=== PATIENT | female | born 1980 | race Caucasian/White ===

== ENCOUNTER 2017-08-28 15:58 | Inpatient (IN) | payer SELFPAY ==
[2017-08-28] MEDS ORDERED: Sodium Chloride 0.9% 10 ML Syringe FLUSH PRN (16:40)
[2017-08-28] MEDS ORDERED: Sodium Chloride 0.9% 2.5 ML Syringe FLUSH PRN (16:40)
--- NOTE | 2017-08-28 16:40 | EDM.PDOC ---
ED HPI GENERAL MEDICAL PROBLEM - General Chief Complaint: Genitourinary Problem Stated Complaint: ABD/BACK PAIN Time Seen by Provider: 08/28/17 16:37 Source of Information: Reports: Patient, Family History Limitations: Reports: No Limitations - History of Present Illness INITIAL COMMENTS - FREE TEXT/NARRATIVE: HISTORY AND PHYSICAL: []37-year-old female presenting with right flank pain History of Present Illness: []Patient is "rocking"while answering questions History of 12 mm stone in the past Pain is been present for 3 days and is now worsening Review of Systems: As per history of present illness and below otherwise all systems reviewed and negative. Past medical history: As per history of present illness and as reviewed below otherwise noncontributory. Surgical history: As per history of present illness and as reviewed below otherwise noncontributory. Social history: No reported history of drug or alcohol abuse. Family history: As per history of present illness and as reviewed below otherwise noncontributory. Physical exam: Alert and oriented female answering questions appropriately speaking in full sentences without any shortness of breath rating pain 12/10 HEENT: Atraumatic, normocehpalic, pupils reactive, negative for conjunctival pallor or scleral icterus, mucous membranes moist, throat clear, neck supple, nontender, trachea midline. Lungs: Clear to auscultation, breath sounds equal bilaterally, chest non tender. Heart: S1S2, regular, negative for clicks, rubs, or JVD. Abdomen: Soft, nondistended, nontender. Negative for masses or hepatossplenmegaly. Positive for right costovertebral tenderness. Pelvis: Stable nontender. Genitourinary: Deferred. Rectal: Deferred Extremities: Atraumatic, negative for cords or calf pain. Neurovascular unremarkable. Neuro: Awake, alert, oriented. Cranial nerves II through XII unremarkable. Cerebellum unremarkable. Motor and sensory unremarkable throughout. Exam nonfocal. Discussed case with hospitalist Dr. Lamas who is in agreement for inpatient admission Discussed with patient and the results of the laboratory values and CT scan and recommended admission for IV antibiotic therapy and pain control Diagnostics: [CBC CMP UA urine culture abdomen pelvis CT with contrast] Therapeutics: [LR Morphine] zofran Levaquin 750 IV Impression: []Pyelonephritis Plan: []Admit as inpatient Definitive disposition and diagnosis as appropriate pending reevaluation and review of above. Onset: Gradual Duration: Day(s):, Getting Worse Location: Reports: Back Quality: Reports: Stabbing, Throbbing Severity: Severe Improves with: Reports: None Worsens with: Reports: None Right Flank Pain Score (Numeric/FACES): 10 - Related Data Allergies Allergy/AdvReac Type Severity Reaction Status Date / Time No Known Allergies Allergy Verified 08/28/17 16:36 Home Meds: Home Meds Esomeprazole Magnesium [Nexium] 20 mg PO DAILY 08/28/17 [History] ED ROS GENERAL - Review of Systems Review Of Systems: ROS reveals no pertinent complaints other than HPI. ED EXAM, RENAL/ - Physical Exam Exam: See Below Course - Vital Signs Last Recorded V/S: Last Vital Signs Temp 39.5 C H 08/28/17 19:15 Pulse 104 H 08/28/17 19:15 Resp 18 08/28/17 19:15 BP 115/74 08/28/17 19:15 Pulse Ox 99 08/28/17 19:15 - Orders/Labs/Meds Orders: Active Orders 24 hr Category Date Time Status Abdomen Pelvis w Cont [CT] Stat Exams 08/28/17 16:41 Taken CULTURE BLOOD [BC] Stat Lab 08/28/17 18:55 Received CULTURE BLOOD [BC] Stat Lab 08/28/17 19:06 Received CULTURE URINE [RM] Stat Lab 08/28/17 18:40 Received Levofloxacin/Dextrose 5%-Water [Levaquin in D5W 750 MG/ Med 08/28/17 19:13 Active 150 ML] 750 mg Premix Bag 1 bag IV ONETIME Sodium Chloride 0.9% [Saline Flush] Med 08/28/17 16:40 Active 10 ml FLUSH ASDIRECTED PRN Sodium Chloride 0.9% [Saline Flush] Med 08/28/17 16:40 Active 2.5 ml FLUSH ASDIRECTED PRN Blood Culture x2 Reflex Set [OM.PC] Stat Oth 08/28/17 18:38 Ordered Saline Lock Insert [OM.PC] Stat Oth 08/28/17 16:40 Ordered Medication Orders Levofloxacin/Dextrose 750 mg/ (Premix) 150 mls @ 100 mls/hr IV ONETIME ONE Stop: 08/28/17 20:42 Last Admin: 08/28/17 19:20 Dose: 100 mls/hr Sodium Chloride (Saline Flush) 10 ml FLUSH ASDIRECTED PRN PRN Reason: Keep Vein Open Last Admin: 08/28/17 16:51 Dose: 10 ml Sodium Chloride (Saline Flush) 2.5 ml FLUSH ASDIRECTED PRN PRN Reason: Keep Vein Open Last Admin: 08/28/17 16:51 Dose: 2.5 ml Labs: Laboratory Tests 08/28/17 08/28/17 08/28/17 Range/Units 16:44 16:44 18:40 WBC 25.59 H (4.0-11.0) K/uL RBC 4.52 (4.30-5.90) M/uL Hgb 14.2 (12.0-16.0) g/dL Hct 40.3 (36.0-46.0) % MCV 89.2 (80.0-98.0) fL MCH 31.4 (27.0-32.0) pg MCHC 35.2 (31.0-37.0) g/dL RDW Std Deviation 44.1 (28.0-62.0) fl RDW Coeff of Giovanna 13 (11.0-15.0) % Plt Count 162 (150-400) K/uL MPV 10.40 (7.40-12.00) fL Add Manual Diff YES Neutrophils % (Manual) 87 H (48.0-80.0) % Band Neutrophils % 8 % Lymphocytes % (Manual) 2 L (16.0-40.0) % Monocytes % (Manual) 3 (0.0-15.0) % Nucleated RBC % 0.0 /100WBC Absolute Seg Neuts 22.3 H (1.4-5.7) Band Neutrophils # 2.0 Lymphocytes # (Manual) 0.5 L (0.6-2.4) Monocytes # (Manual) 0.8 (0.0-0.8) Nucleated RBCs # 0 K/uL Sodium 137 (136-145) mmol/L Potassium 3.2 L (3.5-5.1) mmol/L Chloride 102 (98-107) mmol/L Carbon Dioxide 21.2 (21.0-32.0) mmol/L BUN 13 (7.0-18.0) mg/dL Creatinine 1.1 H (0.6-1.0) mg/dL Est Cr Clr Drug Dosing 54.84 mL/min Estimated GFR (MDRD) 55.6 ml/min Glucose 111 H (74-106) mg/dL Calcium 8.8 (8.5-10.1) mg/dL Total Bilirubin 0.6 (0.2-1.0) mg/dL AST 15 (15-37) IU/L ALT 14 (14-63) IU/L Alkaline Phosphatase 55 (46-116) U/L Total Protein 7.1 (6.4-8.2) g/dL Albumin 3.6 (3.4-5.0) g/dL Globulin 3.5 (2.0-3.5) g/dL Albumin/Globulin Ratio 1.0 L (1.3-2.8) Urine Color YELLOW Urine Appearance SLT CLOUDY Urine pH 5.5 (5.0-8.0) Ur Specific [place] <= 1.005 (1.001-1.035) Urine Protein 100 (NEGATIVE) mg/dL Urine Glucose (UA) NEGATIVE (NEGATIVE) mg/dL Urine Ketones TRACE H (NEGATIVE) mg/dL Urine Occult Blood LARGE H (NEGATIVE) Urine Nitrite POSITIVE H (NEGATIVE) Urine Bilirubin NEGATIVE (NEGATIVE) Urine Urobilinogen 1.0 (<2.0) EU/dL Ur Leukocyte Esterase SMALL (NEGATIVE) Urine RBC 6-9 (0-2/HPF) Urine WBC 15-17 (0-5/HPF) Ur Epithelial Cells RARE (NONE-FEW) Urine Bacteria FEW (NEGATIVE) Urine HCG, Qual (NEGATIVE) 08/28/17 Range/Units 18:40 WBC (4.0-11.0) K/uL RBC (4.30-5.90) M/uL Hgb (12.0-16.0) g/dL Hct (36.0-46.0) % MCV (80.0-98.0) fL MCH (27.0-32.0) pg MCHC (31.0-37.0) g/dL RDW Std Deviation (28.0-62.0) fl RDW Coeff of Giovanna (11.0-15.0) % Plt Count (150-400) K/uL MPV (7.40-12.00) fL Add Manual Diff Neutrophils % (Manual) (48.0-80.0) % Band Neutrophils % % Lymphocytes % (Manual) (16.0-40.0) % Monocytes % (Manual) (0.0-15.0) % Nucleated RBC % /100WBC Absolute Seg Neuts (1.4-5.7) Band Neutrophils # Lymphocytes # (Manual) (0.6-2.4) Monocytes # (Manual) (0.0-0.8) Nucleated RBCs # K/uL Sodium (136-145) mmol/L Potassium (3.5-5.1) mmol/L Chloride (98-107) mmol/L Carbon Dioxide (21.0-32.0) mmol/L BUN (7.0-18.0) mg/dL Creatinine (0.6-1.0) mg/dL Est Cr Clr Drug Dosing mL/min Estimated GFR (MDRD) ml/min Glucose (74-106) mg/dL Calcium (8.5-10.1) mg/dL Total Bilirubin (0.2-1.0) mg/dL AST (15-37) IU/L ALT (14-63) IU/L Alkaline Phosphatase (46-116) U/L Total Protein (6.4-8.2) g/dL Albumin (3.4-5.0) g/dL Globulin (2.0-3.5) g/dL Albumin/Globulin Ratio (1.3-2.8) Urine Color Urine Appearance Urine pH (5.0-8.0) Ur Specific [place] (1.001-1.035) Urine Protein (NEGATIVE) mg/dL Urine Glucose (UA) (NEGATIVE) mg/dL Urine Ketones (NEGATIVE) mg/dL Urine Occult Blood (NEGATIVE) Urine Nitrite (NEGATIVE) Urine Bilirubin (NEGATIVE) Urine Urobilinogen (<2.0) EU/dL Ur Leukocyte Esterase (NEGATIVE) Urine RBC (0-2/HPF) Urine WBC (0-5/HPF) Ur Epithelial Cells (NONE-FEW) Urine Bacteria (NEGATIVE) Urine HCG, Qual NEGATIVE (NEGATIVE) Meds: Medications Generic Name Dose Route Start Last Admin Trade Name Freq PRN Reason Stop Dose Admin Levofloxacin/Dextrose 750 mg/ 150 mls @ 100 mls/hr 08/28/17 19:13 08/28/17 19 :20 Premix IV 08/28/17 20:42 100 mls/hr ONETIME ONE Administration Sodium Chloride 10 ml 08/28/17 16:40 08/28/17 16:51 Saline Flush FLUSH 10 ml ASDIRECTED PRN Administration Keep Vein Open Sodium Chloride 2.5 ml 08/28/17 16:40 08/28/17 16:51 Saline Flush FLUSH 2.5 ml ASDIRECTED PRN Administration Keep Vein Open Discontinued Medications Generic Name Dose Route Start Last Admin Trade Name Usmanq PRN Reason Stop Dose Admin Acetaminophen 650 mg 08/28/17 19:20 08/28/17 19:27 Tylenol PO 08/28/17 19:21 650 mg NOW ONE Administration Sodium Chloride 1,000 mls @ 999 mls/hr 08/28/17 17:52 08/28/17 17:55 Normal Saline IV 08/28/17 18:52 999 mls/hr .Bolus ONE Administration Lactated Ringer's 1,000 mls @ 999 mls/hr 08/28/17 18:34 08/28/17 19:12 Ringers, Lactated IV 08/28/17 19:34 999 mls/hr .BOLUS ONE Administration Iopamidol 100 ml 08/28/17 17:49 08/28/17 17:50 Isovue Multipack-370 (76%) IVPUSH 08/28/17 17:50 100 ml ONETIME STA Administration Ketorolac Tromethamine 30 mg 08/28/17 19:17 08/28/17 19:21 Toradol IVPUSH 08/28/17 19:18 30 mg ONETIME ONE Administration Morphine Sulfate 2 mg 08/28/17 16:41 08/28/17 16:50 Morphine IVPUSH 08/28/17 16:42 2 mg ONETIME ONE Administration Morphine Sulfate 2 mg 08/28/17 18:40 08/28/17 18:51 Morphine IVPUSH 08/28/17 18:41 2 mg ONETIME ONE Administration Ondansetron HCl 4 mg 08/28/17 16:41 08/28/17 16:50 Zofran IVPUSH 08/28/17 16:42 4 mg ONETIME ONE Administration Departure - Departure Time of Disposition: 19:54 Disposition: Home, Self-Care 01 Condition: Fair Clinical Impression: Pyelonephritis - Discharge Information Referrals: PCP,None [Primary Care Provider] - Forms: ED Department Discharge - My Orders Last 24 Hours: My Active Orders 08/28/17 16:40 Sodium Chloride 0.9% [Saline Flush] 10 ml FLUSH ASDIRECTED PRN Sodium Chloride 0.9% [Saline Flush] 2.5 ml FLUSH ASDIRECTED PRN Saline Lock Insert [OM.PC] Stat 08/28/17 16:41 Abdomen Pelvis w Cont [CT] Stat 08/28/17 18:38 Blood Culture x2 Reflex Set [OM.PC] Stat 08/28/17 18:40 CULTURE URINE [RM] Stat 08/28/17 18:55 CULTURE BLOOD [BC] Stat 08/28/17 19:06 CULTURE BLOOD [BC] Stat 08/28/17 19:13 Levofloxacin/Dextrose 5%-Water [Levaquin in D5W 750 MG/150 ML] 750 mg Premix Bag 1 bag IV ONETIME - Assessment/Plan Last 24 Hours: My Active Orders 08/28/17 16:40 Sodium Chloride 0.9% [Saline Flush] 10 ml FLUSH ASDIRECTED PRN Sodium Chloride 0.9% [Saline Flush] 2.5 ml FLUSH ASDIRECTED PRN Saline Lock Insert [OM.PC] Stat 08/28/17 16:41 Abdomen Pelvis w Cont [CT] Stat 08/28/17 18:38 Blood Culture x2 Reflex Set [OM.PC] Stat 08/28/17 18:40 CULTURE URINE [RM] Stat 08/28/17 18:55 CULTURE BLOOD [BC] Stat 08/28/17 19:06 CULTURE BLOOD [BC] Stat 08/28/17 19:13 Levofloxacin/Dextrose 5%-Water [Levaquin in D5W 750 MG/150 ML] 750 mg Premix Bag 1 bag IV ONETIME
[2017-08-28] MEDS ORDERED: Morphine 2 MG/ML Syringe IVPUSH ONE ×2 (16:41→18:40)
[2017-08-28] MEDS ORDERED: Ondansetron 4 MG/2 ML SDV IVPUSH ONE (16:41)
[2017-08-28] MEDS ORDERED: Iopamidol 755 MG/ML 500 ML Multipack Bottle IVPUSH STA (17:49)
[2017-08-28] MEDS ORDERED: Sodium Chloride 0.9% 1,000 ML IV ONE (17:52)
[2017-08-28] MEDS ORDERED: Lactated Ringers 1,000 ML IV ONE ×2 (18:34→20:39)
[2017-08-28] MEDS ORDERED: Levofloxacin/Dextrose 5%-Water 750 MG in Premix Bag 1 BAG IV ONE (19:13)
[2017-08-28] MEDS ORDERED: Ketorolac 30 MG/ML SDV IVPUSH ONE (19:17)
[2017-08-28] MEDS ORDERED: Acetaminophen 325 MG Tab PO ONE (19:20)
[2017-08-28] MEDS ORDERED: Temazepam 15 MG Cap PO PRN (20:42)
[2017-08-28] MEDS ORDERED: Ondansetron 4 MG Tab.DIS PO PRN (20:42)
[2017-08-28] MEDS ORDERED: Ondansetron 4 MG/2 ML SDV IVPUSH PRN (20:42)
[2017-08-28] MEDS ORDERED: Potassium Chloride 20 MEQ Tab.ER PO ONE (20:42)
[2017-08-28] MEDS ORDERED: Acetaminophen 325 MG Tab PO PRN (20:42)
--- NOTE | 2017-08-28 20:50 | PCM.HP ---
H&P History of Present Illness - General Date of Service: 08/28/17 Admit Problem/Dx: Admission Diagnosis/Problem Admission Diagnosis/Problem Pyelonephritis Source of Information: Patient History Limitations: Reports: No Limitations - History of Present Illness Initial Comments - Free Text/Narative: 29-year-old female presenting to emergency department with chief complaint of right back and side pain 3 days with past medical history of nephrolithiasis and GERD. Patient states that this last Sunday she began having some right back and side pain. She had associated diaphoresis, fever, chills, and nausea. States that she has a history of nephrolithiasis and 8 years ago had a 12 mm stone that required lithotripsy with stent. Has not had a renal calculi since. She does report a history of pyelonephritis as a child with infections mainly affecting the right kidney. Patient is a current smoker half a pack a day smoker for 20 years. Otherwise patient is healthy and only takes medications for GERD. She is currently living in [place] and has no PCP. Patient denies any chest pain, palpitations, shortness breath, syncopal episodes, or neurologic deficits. Emergency department:: Leukocytosis 25.59k, hypokalemia 3.2, increased creatinine at 1.1, urine positive for UTI, CT abdomen pelvis showing right striated nephrogram with right perinephric inflammatory change and enhancement of the urothelium reflecting pyelonephritis and pyelitis. There is subtle hypodensity in the left superior kidney could represent an area of mild lori nephritis on the left as well. There are no obstructing stones. Patient hypotensive 82/35, tachycardic 103, with a temp of 103.2. Patient admitted for sepsis secondary to pyelonephritis. Right Flank Pain Score (Numeric/FACES): 2 - Related Data Allergies/Adverse Reactions: Allergies Allergy/AdvReac Type Severity Reaction Status Date / Time No Known Allergies Allergy Verified 08/28/17 16:36 Home Medications: Home Meds Esomeprazole Magnesium [Nexium] 20 mg PO DAILY 08/28/17 [History] Past Medical History - Past Health History Medical/Surgical History: Denies Medical/Surgical History Social & Family History - Tobacco Use Smoking Status *Q: Current Every Day Smoker Years of Tobacco use: 20 Packs/Tins Daily: 0.5 - Caffeine Use Caffeine Use: Reports: Other - Recreational Drug Use Recreational Drug Use: No H&P Review of Systems - Review of Systems: Review Of Systems: See Below General: Reports: Fever, Chills, Fatigue HEENT: Reports: Headaches. Denies: Dysphasia, Sore Throat Pulmonary: Denies: Shortness of Breath, Cough, Sputum Cardiovascular: Denies: Chest Pain, Palpitations, Edema Gastrointestinal: Reports: Decreased Appetite, Nausea, Vomiting. Denies: Abdominal Pain, Black Stool, Bloody Stool, Diarrhea Genitourinary: Reports: Dysuria, Flank Pain. Denies: Hematuria Musculoskeletal: Denies: Neck Pain, Leg Pain Skin: Denies: Cyanosis Psychiatric: Denies: Confusion Neurological: Reports: Headache. Denies: Confusion, Dizziness Hematologic/Lymphatic: Denies: Anemia Immunologic: Denies: Anaphylaxis Exam - Exam Exam: See Below - Vital Signs Vital Signs: Last Vital Signs Temp 100.8 F H 08/28/17 20:27 Pulse 103 H 08/28/17 20:27 Resp 14 08/28/17 20:27 BP 97/49 L 08/28/17 20:27 Pulse Ox 95 08/28/17 20:27 Weight: 76.204 kg - Exam Quality Assessment: DVT Prophylaxis General: Alert, Oriented, Cooperative HEENT: Conjunctiva Clear, EACs Clear, EOMI, Hearing Intact, Mucosa Moist & [place] , Nares Patent, Normal Nasal Septum, Posterior Pharynx Clear, PERRLA Neck: Supple, Trachea Midline, 2 Lungs: Clear to Auscultation, Normal Respiratory Effort Cardiovascular: Regular Rhythm, Tachycardia GI/Abdominal Exam: Normal Bowel Sounds, Soft, Non-Tender, No Organomegaly, No Distention (Female) Exam: Deferred Rectal (Female) Exam: Deferred Back Exam: CVA Tenderness (L), CVA Tenderness (R) Extremities: Normal Inspection, Non-Tender, No Pedal Edema, Normal Capillary Refill Peripheral Pulses: 2+: Radial (L), Radial (R), Posterior Tibial (L), Posterior Tibial (R), Dorsalis Pedis (L), Dorsalis Pedis (R) Skin: Warm, Dry, Intact Neurological: Cranial Nerves Intact Neuro Extensive - Mental Status: Alert, Oriented x3, Normal Mood/Affect, Normal Cognition Neuro Extensive - Motor, Sensory, Reflexes: CN II-XII Intact Psychiatric: Alert, Normal Affect, Normal Mood - Patient Data Result Diagrams: 08/28/17 16:44 08/28/17 16:44 *Q Meaningful Use (ADM) - VTE *Q VTE Criteria *Q: - Stroke *Q Stroke Criteria *Q: - AMI *Q AMI Criteria *Q: - Problem List (1) Sepsis due to Gram negative bacteria SNOMED Code(s): 832414994 ICD Code: A41.50 - GRAM-NEGATIVE SEPSIS, UNSPECIFIED Status: Suspected Priority: High Current Visit: Yes (2) Chronic GERD SNOMED Code(s): 369417908 ICD Code: K21.9 - GASTRO-ESOPHAGEAL REFLUX DISEASE WITHOUT ESOPHAGITIS Status: Chronic Priority: Low Current Visit: Yes (3) Pyelonephritis SNOMED Code(s): 60578221 ICD Code: N12 - TUBULO-INTERSTITIAL NEPHRITIS, NOT SPCF ACUTE OR CHRONIC Status: Acute Priority: High Current Visit: Yes Problem List Initiated/Reviewed/Updated: Yes Orders Last 24hrs: Active Orders 24 hr Category Date Time Status Patient Status [ADT] Routine ADT 08/28/17 20:42 Ordered Antiembolic Devices [RC] PER UNIT ROUTINE Care 08/28/17 20:44 Ordered Oxygen Therapy [RC] PRN Care 08/28/17 20:42 Ordered Up With Assistance [RC] ASDIRECTED Care 08/28/17 20:42 Ordered VTE/DVT Education [RC] PER UNIT ROUTINE Care 08/28/17 20:42 Ordered Vital Signs [RC] Q4H Care 08/28/17 20:42 Ordered Regular Diet [DIET] Diet 08/28/17 Dinner Ordered Retroperitoneal Comp [US] Routine Exams 08/28/17 20:42 Ordered CBC WITH AUTO DIFF [HEME] AM Lab 08/29/17 05:11 Ordered CBC WITH AUTO DIFF [HEME] AM Lab 08/30/17 05:11 Ordered CBC WITH AUTO DIFF [HEME] AM Lab 08/31/17 05:11 Ordered CBC WITH AUTO DIFF [HEME] AM Lab 09/01/17 05:11 Ordered COMPREHENSIVE METABOLIC PN,CMP [CHEM] AM Lab 08/29/17 05:11 Ordered COMPREHENSIVE METABOLIC PN,CMP [CHEM] AM Lab 08/30/17 05:11 Ordered COMPREHENSIVE METABOLIC PN,CMP [CHEM] AM Lab 08/31/17 05:11 Ordered COMPREHENSIVE METABOLIC PN,CMP [CHEM] AM Lab 09/01/17 05:11 Ordered MAGNESIUM [CHEM] AM Lab 08/29/17 05:11 Ordered Acetaminophen [Tylenol] Med 08/28/17 20:42 Ordered 650 mg PO Q4H PRN Acetaminophen/HYDROcodone [[place] 325-5 MG] Med 08/28/17 20:42 Ordered 1 tab PO Q4H PRN Enoxaparin [Lovenox] Med 08/28/17 20:45 Ordered 40 mg SUBCUT DAILY Esomeprazole Magnesium [Nexium] Med 08/29/17 09:00 Ordered 20 mg PO DAILY Lactated Ringers [Ringers, Lactated] 1,000 ml Med 08/28/17 20:45 Ordered IV ASDIRECTED Lactated Ringers [Ringers, Lactated] 1,000 ml Med 08/28/17 20:39 Active IV ONETIME Levofloxacin/Dextrose 5%-Water [Levaquin in D5W 750 MG/ Med 08/29/17 20:00 Ordered 150 ML] 750 mg Premix Bag 1 bag IV Q24H Morphine Med 08/28/17 20:42 Ordered 2 mg IVPUSH Q2H PRN Nicotine [Habitrol] Med 08/28/17 20:45 Ordered 7 mg TRDERM DAILY Ondansetron [Zofran ODT] Med 08/28/17 20:42 Ordered 4 mg PO Q4H PRN Ondansetron [Zofran] Med 08/28/17 20:42 Ordered 4 mg IVPUSH Q4H PRN Potassium Chloride [Klor-Con M20] Med 08/28/17 20:42 Once 40 meq PO ONETIME ONE Temazepam [Restoril] Med 08/28/17 20:42 Ordered 15 mg PO BEDTIME PRN Sequential Compression Device [OM.PC] Per Unit Routine Oth 08/28/17 20:43 Ordered Resuscitation Status Routine Resus Stat 08/28/17 20:42 Ordered Medication Orders Acetaminophen (Tylenol) 650 mg PO Q4H PRN PRN Reason: Pain (Mild 1-3)/fever Hydrocodone Bitart/Acetaminophen ([place] 325-5 Mg) 1 tab PO Q4H PRN PRN Reason: Pain (moderate 4-6) Enoxaparin Sodium (Lovenox) 40 mg SUBCUT DAILY LULU Lactated Ringer's (Ringers, Lactated) 1,000 mls @ 999 mls/hr IV ONETIME ONE Stop: 08/28/17 21:39 Last Admin: 08/28/17 20:47 Dose: 999 mls/hr Lactated Ringer's (Ringers, Lactated) 1,000 mls @ 150 mls/hr IV ASDIRECTED REPLACED BY [facility] Levofloxacin/Dextrose 750 mg/ (Premix) 150 mls @ 100 mls/hr IV Q24H [facility] Morphine Sulfate (Morphine) 2 mg IVPUSH Q2H PRN PRN Reason: Pain (severe 7-10) Stop: 08/29/17 20:45 Nicotine (Habitrol) 7 mg TRDERM DAILY REPLACED BY [facility] Non-Formulary Medication (Esomeprazole Magnesium [Nexium]) 20 mg PO DAILY REPLACED BY [facility] Ondansetron HCl (Zofran Odt) 4 mg PO Q4H PRN PRN Reason: nausea, able to take PO Ondansetron HCl (Zofran) 4 mg IVPUSH Q4H PRN PRN Reason: Nausea Potassium Chloride (Klor-Con M20) 40 meq PO ONETIME ONE Stop: 08/28/17 20:43 Sodium Chloride (Saline Flush) 10 ml FLUSH ASDIRECTED PRN PRN Reason: Keep Vein Open Last Admin: 08/28/17 16:51 Dose: 10 ml Sodium Chloride (Saline Flush) 2.5 ml FLUSH ASDIRECTED PRN PRN Reason: Keep Vein Open Last Admin: 08/28/17 16:51 Dose: 2.5 ml Temazepam (Restoril) 15 mg PO BEDTIME PRN PRN Reason: Sleep Assessment/Plan Comment:: 29-year-old female admitted 08/28/17 for sepsis secondary to pyelonephritis past medical history of GERD. Pyelonephritis/sepsis: Admit to ICU, IV fluid resuscitate with boluses as needed. Levaquin 750 mg every 24, blood cultures and urine culture obtained and pending. Lactate normal. Will get renal ultrasound as well. Acute kidney injury: Most likely secondary to vol. depletion, IV fluid resuscitate and monitor. Hypokalemia: Replace with potassium supplement. Smoking addiction: Transdermal nicotine VTE: SCD, Lovenox Dispo:2-4 days pending.
[2017-08-28] MEDS: Enoxaparin 40 MG/0.4 ML Syringe SUBCUT SCH (21:33)
[2017-08-28] MEDS: Nicotine 7 MG/24 Hr Patch TRDERM SCH (21:33)
[2017-08-28] MEDS: Lactated Ringers 1,000 ML IV SCH ×2 (21:44→22:52)
[2017-08-28] MEDS: Acetaminophen/HYDROcodone 325-5 MG Tab PO PRN (22:31)
[2017-08-28] MEDS ORDERED: Albumin 5% 250 ML IV SCH (23:00)
[2017-08-29] MEDS: Ibuprofen 400 MG Tab PO PRN ×3 (00:07→23:41)
[2017-08-29] MEDS: Morphine 2 MG/ML Syringe IVPUSH PRN ×3 (00:36→19:17)
[2017-08-29] MEDS ORDERED: Sodium Chloride 0.9% 1,000 ML IV ONE (05:29)
[2017-08-29] MEDS: Lactated Ringers 1,000 ML IV SCH ×3 (05:32→19:44)
[2017-08-29] MEDS ORDERED: Magnesium Sulfate/Water 2 GM in Premix Bag 1 BAG IV ONE (06:59)
[2017-08-29] MEDS: Omeprazole 20 MG Cap.CR PO SCH (08:00)
[2017-08-29] MEDS: Enoxaparin 40 MG/0.4 ML Syringe SUBCUT SCH (08:00)
[2017-08-29] MEDS: Nicotine 7 MG/24 Hr Patch TRDERM SCH (08:10)
[2017-08-29] MEDS ORDERED: Magnesium Sulfate/Water 4 GM in Premix Bag 1 BAG IV ONE (08:57)
[2017-08-29] MEDS ORDERED: Metoclopramide 10 MG/2 ML SDV IVPUSH ONE (10:09)
[2017-08-29] MEDS ORDERED: diphenhydrAMINE 50 MG/ML SDV IVPUSH ONE ×2 (10:09→19:49)
[2017-08-29] MEDS ORDERED: Ketorolac 15 MG/ML SDV IVPUSH ONE (10:09)
--- NOTE | 2017-08-29 10:33 | CT ---
EXAM DATE: 08/28/17 PATIENT'S AGE: 37 Patient: RENE DALTON Facility: [place], [place] Site . Site : [id number] Study: CT Abdomen/Pelvis With [id number] 6:08:43 PM Ordering Physician: Doctor Johnson Final Report: General abdominal pain. TECHNIQUE: Contrast-enhanced CT abdomen pelvis. Coronal sagittal reformat images obtained. No comparison studies are available. FINDINGS: Basilar mild atelectasis. Heart size normal. No pericardial effusion. No pleural effusion. Right lower lobe granuloma. Probable deflated bilateral breast implants. Small cysts in the liver. Gallbladder spleen pancreas adrenal glands are unremarkable. Striated nephrogram involving the right kidney with additional more confluent low-density areas in the in the superior right kidney. Punctate nonobstructing right lower pole renal calculus. There is perinephric stranding on the right. There is enhancement of the urothelium on the right. No obstructing stones. Possible subtle hypodensity left superior kidney seen on series 201 image 45. No hydronephrosis. Normal vascular enhancement of the mesenteric vessels. Normal appendix. Urinary bladder appears unremarkable. The bowel is unremarkable. No suspicious bony lesions. Findings : IMPRESSION: 1. Right striated nephrogram with right perinephric inflammatory change and enhancement of the urothelium reflecting pyelonephritis and pyelitis. Subtle hypodensity in the left superior kidney could represent an area of mild pyelonephritis on the left as well. No obstructing stones. Please note that all CT scans at this facility use dose modulation, iterative reconstruction, and/or weight-based dosing when appropriate to reduce radiation dose to as low as reasonably achievable. Dictated by Liliane Thurman MD @ Aug 28 2017 6:47PM (Electronic Signature) Report Signed by Proxy. [facility] CENTERReyna
--- NOTE | 2017-08-29 11:08 | US ---
EXAMINATION: Renal ultrasound HISTORY: Pyelonephritis COMPARISON: CT dated 08/28/2017 TECHNIQUE: Grayscale and color Doppler imaging obtained of the kidneys and bladder. FINDINGS: The right kidney measures at least 13.1 cm and the left kidney measures at least 12.5 cm po le-to-pole. There is a minimal prominence of the right renal collecting system. Color Doppler flow ap pears normal bilaterally. Urinary bladder appears normal. No renal masses or perinephric fluid collec tions. IMPRESSION: Grossly unremarkable renal ultrasound.
[2017-08-29] MEDS: Acetaminophen/HYDROcodone 325-5 MG Tab PO PRN ×2 (12:24→23:41)
--- NOTE | 2017-08-29 14:46 | PCM.PN ---
- General Info Date of Service: 08/29/17 Subjective Update: Patient still having some chills, her hypotension is improving, she is however having a significant headache which appears to be migraine in nature. Likely secondary to her dehydration and acute pyelonephritis symptoms. - Review of Systems General: Reports: Weakness, Chills - Patient Data Vitals - Most Recent: Last Vital Signs Temp 37.1 C 08/29/17 14:00 Pulse 96 08/28/17 20:34 Resp 24 H 08/29/17 14:00 BP 93/51 L 08/29/17 14:00 Pulse Ox 96 08/29/17 14:00 Weight - Most Recent: 81.7 kg I&O - Last 24 Hours: Intake & Output 08/28/17 08/29/17 08/29/17 22:59 06:59 14:59 Intake Total 2150 700 1564 Output Total 850 850 Balance 2150 -150 714 Lab Results Last 24 Hours: Laboratory Results - last 24 hr 08/28/17 08/29/17 08/29/17 Range/Units 21:34 05:33 05:33 WBC 18.19 H (4.0-11.0) K/uL RBC 3.56 L (4.30-5.90) M/uL Hgb 11.1 L (12.0-16.0) g/dL Hct 32.4 L (36.0-46.0) % MCV 91.0 (80.0-98.0) fL MCH 31.2 (27.0-32.0) pg MCHC 34.3 (31.0-37.0) g/dL RDW Std Deviation 45.3 (28.0-62.0) fl RDW Coeff of Giovanna 14 (11.0-15.0) % Plt Count 122 L (150-400) K/uL MPV 10.60 (7.40-12.00) fL Add Manual Diff YES Neutrophils % (Manual) 75 (48.0-80.0) % Band Neutrophils % 16 % Lymphocytes % (Manual) 4 L (16.0-40.0) % Monocytes % (Manual) 5 (0.0-15.0) % Nucleated RBC % 0.0 /100WBC Absolute Seg Neuts 13.6 H (1.4-5.7) Band Neutrophils # 2.9 Lymphocytes # (Manual) 0.7 (0.6-2.4) Monocytes # (Manual) 0.9 H (0.0-0.8) Nucleated RBCs # 0 K/uL Lactate 1.9 (0.20-2.00) mmol/L Sodium 138 (136-145) mmol/L Potassium 4.3 (3.5-5.1) mmol/L Chloride 105 (98-107) mmol/L Carbon Dioxide 24.5 (21.0-32.0) mmol/L BUN 13 (7.0-18.0) mg/dL Creatinine 1.1 H (0.6-1.0) mg/dL Est Cr Clr Drug Dosing 54.84 mL/min Estimated GFR (MDRD) 55.6 ml/min Glucose 110 H (74-106) mg/dL Calcium 8.0 L (8.5-10.1) mg/dL Phosphorus (2.6-4.7) mg/dL Magnesium 1.0 L (1.5-2.0) mg/dL Total Bilirubin 0.5 (0.2-1.0) mg/dL AST 17 (15-37) IU/L ALT 16 (14-63) IU/L Alkaline Phosphatase 34 L (46-116) U/L Total Protein 5.4 L (6.4-8.2) g/dL Albumin 2.6 L (3.4-5.0) g/dL Globulin 2.8 (2.0-3.5) g/dL Albumin/Globulin Ratio 0.9 L (1.3-2.8) 08/29/17 Range/Units 05:33 WBC (4.0-11.0) K/uL RBC (4.30-5.90) M/uL Hgb (12.0-16.0) g/dL Hct (36.0-46.0) % MCV (80.0-98.0) fL MCH (27.0-32.0) pg MCHC (31.0-37.0) g/dL RDW Std Deviation (28.0-62.0) fl RDW Coeff of Giovanna (11.0-15.0) % Plt Count (150-400) K/uL MPV (7.40-12.00) fL Add Manual Diff Neutrophils % (Manual) (48.0-80.0) % Band Neutrophils % % Lymphocytes % (Manual) (16.0-40.0) % Monocytes % (Manual) (0.0-15.0) % Nucleated RBC % /100WBC Absolute Seg Neuts (1.4-5.7) Band Neutrophils # Lymphocytes # (Manual) (0.6-2.4) Monocytes # (Manual) (0.0-0.8) Nucleated RBCs # K/uL Lactate (0.20-2.00) mmol/L Sodium (136-145) mmol/L Potassium (3.5-5.1) mmol/L Chloride (98-107) mmol/L Carbon Dioxide (21.0-32.0) mmol/L BUN (7.0-18.0) mg/dL Creatinine (0.6-1.0) mg/dL Est Cr Clr Drug Dosing mL/min Estimated GFR (MDRD) ml/min Glucose (74-106) mg/dL Calcium (8.5-10.1) mg/dL Phosphorus 2.8 (2.6-4.7) mg/dL Magnesium (1.5-2.0) mg/dL Total Bilirubin (0.2-1.0) mg/dL AST (15-37) IU/L ALT (14-63) IU/L Alkaline Phosphatase (46-116) U/L Total Protein (6.4-8.2) g/dL Albumin (3.4-5.0) g/dL Globulin (2.0-3.5) g/dL Albumin/Globulin Ratio (1.3-2.8) Med Orders - Current: Current Medications Acetaminophen (Tylenol) 650 mg PO Q4H PRN PRN Reason: Pain (Mild 1-3)/fever Hydrocodone Bitart/Acetaminophen ([place] 325-5 Mg) 1 tab PO Q4H PRN PRN Reason: Pain (moderate 4-6) Last Admin: 08/29/17 12:24 Dose: 1 tab Enoxaparin Sodium (Lovenox) 40 mg SUBCUT DAILY [facility] Last Admin: 08/29/17 08:00 Dose: 40 mg Lactated Ringer's (Ringers, Lactated) 1,000 mls @ 150 mls/hr IV ASDIRECTED [facility] Last Admin: 08/29/17 13:16 Dose: 150 mls/hr Levofloxacin/Dextrose 750 mg/ (Premix) 150 mls @ 100 mls/hr IV Q24H [facility] Ibuprofen (Motrin) 400 mg PO Q6H PRN PRN Reason: Other Last Admin: 08/29/17 12:24 Dose: 400 mg Morphine Sulfate (Morphine) 2 mg IVPUSH Q2H PRN PRN Reason: Pain (severe 7-10) Stop: 08/29/17 20:45 Last Admin: 08/29/17 08:00 Dose: 2 mg Nicotine (Habitrol) 7 mg TRDERM DAILY [facility] Last Admin: 08/29/17 08:10 Dose: 7 mg Omeprazole (Omeprazole) 20 mg PO DAILY [facility] Last Admin: 08/29/17 08:00 Dose: 20 mg Ondansetron HCl (Zofran Odt) 4 mg PO Q4H PRN PRN Reason: nausea, able to take PO Ondansetron HCl (Zofran) 4 mg IVPUSH Q4H PRN PRN Reason: Nausea Last Admin: 08/29/17 00:03 Dose: 4 mg Sodium Chloride (Saline Flush) 10 ml FLUSH ASDIRECTED PRN PRN Reason: Keep Vein Open Last Admin: 08/28/17 16:51 Dose: 10 ml Sodium Chloride (Saline Flush) 2.5 ml FLUSH ASDIRECTED PRN PRN Reason: Keep Vein Open Last Admin: 08/28/17 16:51 Dose: 2.5 ml Temazepam (Restoril) 15 mg PO BEDTIME PRN PRN Reason: Sleep Discontinued Medications Acetaminophen (Tylenol) 650 mg PO NOW ONE Stop: 08/28/17 19:21 Last Admin: 08/28/17 19:27 Dose: 650 mg Diphenhydramine HCl (Benadryl) 25 mg IVPUSH ONETIME ONE Stop: 08/29/17 10:10 Last Admin: 08/29/17 10:43 Dose: 25 mg Sodium Chloride (Normal Saline) 1,000 mls @ 999 mls/hr IV .Bolus ONE Stop: 08/28/17 18:52 Last Admin: 08/28/17 17:55 Dose: 999 mls/hr Lactated Ringer's (Ringers, Lactated) 1,000 mls @ 999 mls/hr IV .BOLUS ONE Stop: 08/28/17 19:34 Last Admin: 08/28/17 19:12 Dose: 999 mls/hr Levofloxacin/Dextrose 750 mg/ (Premix) 150 mls @ 100 mls/hr IV ONETIME ONE Stop: 08/28/17 20:42 Last Admin: 08/28/17 19:20 Dose: 100 mls/hr Lactated Ringer's (Ringers, Lactated) 1,000 mls @ 999 mls/hr IV ONETIME ONE Stop: 08/28/17 21:39 Last Admin: 08/28/17 20:47 Dose: 999 mls/hr Albumin Human (Buminate 5%) 250 mls @ 125 mls/hr IV Q2H [facility] Stop: 08/29/17 00:59 Last Admin: 08/29/17 00:02 Dose: 125 mls/hr Sodium Chloride (Normal Saline) 1,000 mls @ 1,000 mls/hr IV .Bolus ONE Stop: 08/29/17 06:28 Last Admin: 08/29/17 05:49 Dose: 1,000 mls/hr Magnesium Sulfate 2 gm/ Premix 50 mls @ 50 mls/hr IV ONETIME ONE Stop: 08/29/17 07:58 Last Admin: 08/29/17 07:52 Dose: 50 mls/hr Magnesium Sulfate 4 gm/ Premix 100 mls @ 50 mls/hr IV ONETIME ONE Stop: 08/29/17 10:56 Last Admin: 08/29/17 09:12 Dose: Not Given Iopamidol (Isovue Multipack-370 (76%)) 100 ml IVPUSH ONETIME STA Stop: 08/28/17 17:50 Last Admin: 08/28/17 17:50 Dose: 100 ml Ketorolac Tromethamine (Toradol) 30 mg IVPUSH ONETIME ONE Stop: 08/28/17 19:18 Last Admin: 08/28/17 19:21 Dose: 30 mg Ketorolac Tromethamine (Toradol) 15 mg IVPUSH ONETIME ONE Stop: 08/29/17 10:10 Last Admin: 08/29/17 10:42 Dose: 15 mg Metoclopramide HCl (Reglan) 10 mg IVPUSH ONETIME ONE Stop: 08/29/17 10:10 Last Admin: 08/29/17 10:43 Dose: 10 mg Morphine Sulfate (Morphine) 2 mg IVPUSH ONETIME ONE Stop: 08/28/17 16:42 Last Admin: 08/28/17 16:50 Dose: 2 mg Morphine Sulfate (Morphine) 2 mg IVPUSH ONETIME ONE Stop: 08/28/17 18:41 Last Admin: 08/28/17 18:51 Dose: 2 mg Ondansetron HCl (Zofran) 4 mg IVPUSH ONETIME ONE Stop: 08/28/17 16:42 Last Admin: 08/28/17 16:50 Dose: 4 mg Potassium Chloride (Klor-Con M20) 40 meq PO ONETIME ONE Stop: 08/28/17 20:43 Last Admin: 08/28/17 21:32 Dose: 40 meq - Exam Quality Assessment: Supplemental Oxygen General: Alert, Oriented, Cooperative, Mild Distress HEENT: Pupils Equal Lungs: Clear to Auscultation, Normal Respiratory Effort Cardiovascular: Regular Rhythm, Tachycardia GI/Abdominal Exam: Other (Mild lower abdominal pain, and flank) Back Exam: Normal Inspection Extremities: Normal Inspection - Problem List & Annotations (1) Migraine headache without aura SNOMED Code(s): 37875299 Code(s): G43.009 - MIGRAINE W/O AURA, NOT INTRACTABLE, W/O STATUS MIGRAINOSUS Status: Acute Current Visit: Yes - Problem List Review Problem List Initiated/Reviewed/Updated: Yes - Plan Plan:: 29-year-old female admitted 08/28/17 for sepsis secondary to pyelonephritis past medical history of GERD. Pyelonephritis/sepsis: Admit to ICU, IV fluid resuscitate with boluses as needed. Levaquin 750 mg every 24, blood cultures and urine culture obtained and pending. Lactate normal. Awaiting results of the ultrasound. Acute kidney injury: Most likely secondary to vol. depletion, IV fluid resuscitate and monitor. Hypokalemia: Replace with potassium supplement. Smoking addiction: Transdermal nicotine Migraine headaches Migraine headache cocktail initiated. Hypomagnesemia -Magnesium has been replaced shall check an a.m. VTE: SCD, Lovenox Dispo:2-4 days pending.
[2017-08-29] MEDS ORDERED: Ketorolac 30 MG/ML SDV IVPUSH ONE (19:49)
[2017-08-29] MEDS ORDERED: Prochlorperazine 10 MG/2 ML SDV IVPUSH ONE (19:49)
[2017-08-29] MEDS ORDERED: Levofloxacin/Dextrose 5%-Water 750 MG in Premix Bag 1 BAG IV SCH (20:00)
[2017-08-29] MEDS ORDERED: SUMAtriptan 50 MG Tab PO ONE (23:58)
[2017-08-30] MEDS ORDERED: SUMAtriptan 50 MG Tab ONE (00:03)
[2017-08-30] MEDS: Lactated Ringers 1,000 ML IV SCH ×4 (02:35→19:26)
[2017-08-30 05:53] LABS: CHLORIDE,CL 107 mmol/L (98-107); SODIUM,NA 138 mmol/L (136-145)
[2017-08-30] MEDS: Nicotine 7 MG/24 Hr Patch TRDERM SCH (09:06)
[2017-08-30] MEDS: Omeprazole 20 MG Cap.CR PO SCH (09:06)
[2017-08-30] MEDS: Enoxaparin 40 MG/0.4 ML Syringe SUBCUT SCH (09:08)
[2017-08-30] MEDS: Ibuprofen 400 MG Tab PO PRN (11:33)
[2017-08-30] MEDS: SUMAtriptan 50 MG Tab PO PRN ×2 (12:11→19:05)
[2017-08-30] MEDS ORDERED: HYDROmorphone 1 MG/ML Syringe IVPUSH ONE (12:11)
[2017-08-30] MEDS: Morphine 2 MG/ML Syringe IVPUSH PRN (12:14)
[2017-08-30] MEDS: Acetaminophen/HYDROcodone 325-5 MG Tab PO PRN (12:54)
[2017-08-30] MEDS ORDERED: Morphine 4 MG/ML Syringe IVPUSH PRN (15:14)
[2017-08-30] MEDS ORDERED: Levofloxacin 250 MG Tab PO SCH (20:00)
--- NOTE | 2017-08-30 20:30 | PCM.PN ---
- General Info Date of Service: 08/30/17 Subjective Update: Patient vital signs are stable, she still is having some chills, her last fever was yesterday. Her headaches which appear to be migraine in nature acutely started to have improved secondary to the Imitrex medication. - Patient Data Vitals - Most Recent: Last Vital Signs Temp 37.0 C 08/30/17 16:00 Pulse 84 08/30/17 16:00 Resp 18 08/30/17 16:00 BP 116/77 08/30/17 16:00 Pulse Ox 98 08/30/17 16:00 Weight - Most Recent: 84.8 kg I&O - Last 24 Hours: Intake & Output 08/30/17 08/30/17 08/30/17 06:59 14:59 22:59 Intake Total 2375 2494 Output Total 950 2650 Balance 1425 -156 Lab Results Last 24 Hours: Laboratory Results - last 24 hr 08/30/17 08/30/17 08/30/17 Range/Units 05:20 05:20 05:20 WBC 11.68 H (4.0-11.0) K/uL RBC 3.61 L (4.30-5.90) M/uL Hgb 11.2 L (12.0-16.0) g/dL Hct 32.7 L (36.0-46.0) % MCV 90.6 (80.0-98.0) fL MCH 31.0 (27.0-32.0) pg MCHC 34.3 (31.0-37.0) g/dL RDW Std Deviation 45.8 (28.0-62.0) fl RDW Coeff of Giovanna 14 (11.0-15.0) % Plt Count 109 L (150-400) K/uL MPV 10.60 (7.40-12.00) fL Neut % (Auto) 80.2 H (48.0-80.0) % Lymph % (Auto) 8.8 L (16.0-40.0) % [place] % (Auto) 10.5 (0.0-15.0) % Eos % (Auto) 0.3 (0.0-7.0) % Baso % (Auto) 0.2 (0.0-1.5) % Neut # (Auto) 9.4 H (1.4-5.7) K/uL Lymph # (Auto) 1.0 (0.6-2.4) K/uL [place] # (Auto) 1.2 H (0.0-0.8) K/uL Eos # (Auto) 0.0 (0.0-0.7) K/uL Baso # (Auto) 0.0 (0.0-0.1) K/uL Nucleated RBC % 0.0 /100WBC Nucleated RBCs # 0 K/uL Sodium 138 (136-145) mmol/L Potassium 4.0 (3.5-5.1) mmol/L Chloride 107 (98-107) mmol/L Carbon Dioxide 25.4 (21.0-32.0) mmol/L BUN 13 (7.0-18.0) mg/dL Creatinine 0.9 (0.6-1.0) mg/dL Est Cr Clr Drug Dosing 67.03 mL/min Estimated GFR (MDRD) > 60.0 ml/min Glucose 100 (74-106) mg/dL Calcium 8.1 L (8.5-10.1) mg/dL Magnesium 1.7 (1.5-2.0) mg/dL Total Bilirubin 0.4 (0.2-1.0) mg/dL AST 16 (15-37) IU/L ALT 14 (14-63) IU/L Alkaline Phosphatase 36 L (46-116) U/L Total Protein 5.1 L (6.4-8.2) g/dL Albumin 2.1 L (3.4-5.0) g/dL Globulin 3.0 (2.0-3.5) g/dL Albumin/Globulin Ratio 0.7 L (1.3-2.8) Med Orders - Current: Current Medications Acetaminophen (Tylenol) 650 mg PO Q4H PRN PRN Reason: Pain (Mild 1-3)/fever Hydrocodone Bitart/Acetaminophen ([place] 325-5 Mg) 1 tab PO Q4H PRN PRN Reason: Pain (moderate 4-6) Last Admin: 08/30/17 12:54 Dose: 1 tab Hydrocodone Bitart/Acetaminophen ([place] 325-10 Mg) 1 tab PO Q4H PRN PRN Reason: Pain Enoxaparin Sodium (Lovenox) 40 mg SUBCUT DAILY [facility] Last Admin: 08/30/17 09:08 Dose: 40 mg Lactated Ringer's (Ringers, Lactated) 1,000 mls @ 100 mls/hr IV ASDIRECTED [facility] Last Admin: 08/30/17 19:26 Dose: 100 mls/hr Ibuprofen (Motrin) 400 mg PO Q6H PRN PRN Reason: Other Last Admin: 08/30/17 11:33 Dose: 400 mg Levofloxacin (Levaquin) 750 mg PO Q24H [facility] Morphine Sulfate (Morphine) 2 mg IVPUSH Q2H PRN PRN Reason: Pain (severe 7-10) Nicotine (Habitrol) 7 mg TRDERM DAILY [facility] Last Admin: 08/30/17 09:06 Dose: 7 mg Omeprazole (Omeprazole) 20 mg PO DAILY [facility] Last Admin: 08/30/17 09:06 Dose: 20 mg Ondansetron HCl (Zofran Odt) 4 mg PO Q4H PRN PRN Reason: nausea, able to take PO Ondansetron HCl (Zofran) 4 mg IVPUSH Q4H PRN PRN Reason: Nausea Last Admin: 08/29/17 00:03 Dose: 4 mg Sodium Chloride (Saline Flush) 10 ml FLUSH ASDIRECTED PRN PRN Reason: Keep Vein Open Last Admin: 08/28/17 16:51 Dose: 10 ml Sodium Chloride (Saline Flush) 2.5 ml FLUSH ASDIRECTED PRN PRN Reason: Keep Vein Open Last Admin: 08/28/17 16:51 Dose: 2.5 ml Sumatriptan Succinate (Imitrex) 50 mg PO Q2H PRN PRN Reason: Headache/Pain Last Admin: 08/30/17 19:05 Dose: 50 mg Temazepam (Restoril) 15 mg PO BEDTIME PRN PRN Reason: Sleep Discontinued Medications Acetaminophen (Tylenol) 650 mg PO NOW ONE Stop: 08/28/17 19:21 Last Admin: 08/28/17 19:27 Dose: 650 mg Diphenhydramine HCl (Benadryl) 25 mg IVPUSH ONETIME ONE Stop: 08/29/17 10:10 Last Admin: 08/29/17 10:43 Dose: 25 mg Diphenhydramine HCl (Benadryl) 50 mg IVPUSH ONETIME ONE Stop: 08/29/17 19:50 Last Admin: 08/29/17 20:01 Dose: 50 mg Hydromorphone HCl (Dilaudid) 1 mg IVPUSH ONETIME ONE Stop: 08/30/17 12:12 Last Admin: 08/30/17 13:05 Dose: Not Given Sodium Chloride (Normal Saline) 1,000 mls @ 999 mls/hr IV .Bolus ONE Stop: 08/28/17 18:52 Last Admin: 08/28/17 17:55 Dose: 999 mls/hr Lactated Ringer's (Ringers, Lactated) 1,000 mls @ 999 mls/hr IV .BOLUS ONE Stop: 08/28/17 19:34 Last Admin: 08/28/17 19:12 Dose: 999 mls/hr Levofloxacin/Dextrose 750 mg/ (Premix) 150 mls @ 100 mls/hr IV ONETIME ONE Stop: 08/28/17 20:42 Last Admin: 08/28/17 19:20 Dose: 100 mls/hr Lactated Ringer's (Ringers, Lactated) 1,000 mls @ 999 mls/hr IV ONETIME ONE Stop: 08/28/17 21:39 Last Admin: 08/28/17 20:47 Dose: 999 mls/hr Lactated Ringer's (Ringers, Lactated) 1,000 mls @ 150 mls/hr IV ASDIRECTED [facility] Last Infusion: 08/30/17 09:16 Dose: Infused Levofloxacin/Dextrose 750 mg/ (Premix) 150 mls @ 100 mls/hr IV Q24H [facility] Last Admin: 08/29/17 19:17 Dose: 100 mls/hr Albumin Human (Buminate 5%) 250 mls @ 125 mls/hr IV Q2H [facility] Stop: 08/29/17 00:59 Last Admin: 08/29/17 00:02 Dose: 125 mls/hr Sodium Chloride (Normal Saline) 1,000 mls @ 1,000 mls/hr IV .Bolus ONE Stop: 08/29/17 06:28 Last Admin: 08/29/17 05:49 Dose: 1,000 mls/hr Magnesium Sulfate 2 gm/ Premix 50 mls @ 50 mls/hr IV ONETIME ONE Stop: 08/29/17 07:58 Last Admin: 08/29/17 07:52 Dose: 50 mls/hr Magnesium Sulfate 4 gm/ Premix 100 mls @ 50 mls/hr IV ONETIME ONE Stop: 08/29/17 10:56 Last Admin: 08/29/17 09:12 Dose: Not Given Iopamidol (Isovue Multipack-370 (76%)) 100 ml IVPUSH ONETIME STA Stop: 08/28/17 17:50 Last Admin: 08/28/17 17:50 Dose: 100 ml Ketorolac Tromethamine (Toradol) 30 mg IVPUSH ONETIME ONE Stop: 08/28/17 19:18 Last Admin: 08/28/17 19:21 Dose: 30 mg Ketorolac Tromethamine (Toradol) 15 mg IVPUSH ONETIME ONE Stop: 08/29/17 10:10 Last Admin: 08/29/17 10:42 Dose: 15 mg Ketorolac Tromethamine (Toradol) 30 mg IVPUSH ONETIME ONE Stop: 08/29/17 19:50 Last Admin: 08/29/17 19:59 Dose: 30 mg Metoclopramide HCl (Reglan) 10 mg IVPUSH ONETIME ONE Stop: 08/29/17 10:10 Last Admin: 08/29/17 10:43 Dose: 10 mg Morphine Sulfate (Morphine) 2 mg IVPUSH ONETIME ONE Stop: 08/28/17 16:42 Last Admin: 08/28/17 16:50 Dose: 2 mg Morphine Sulfate (Morphine) 2 mg IVPUSH ONETIME ONE Stop: 08/28/17 18:41 Last Admin: 08/28/17 18:51 Dose: 2 mg Morphine Sulfate (Morphine) 2 mg IVPUSH Q2H PRN PRN Reason: Pain (severe 7-10) Last Admin: 08/30/17 12:14 Dose: 2 mg Ondansetron HCl (Zofran) 4 mg IVPUSH ONETIME ONE Stop: 08/28/17 16:42 Last Admin: 08/28/17 16:50 Dose: 4 mg Potassium Chloride (Klor-Con M20) 40 meq PO ONETIME ONE Stop: 08/28/17 20:43 Last Admin: 08/28/17 21:32 Dose: 40 meq Prochlorperazine Edisylate (Compazine) 10 mg IVPUSH ONETIME ONE Stop: 08/29/17 19:50 Last Admin: 08/29/17 20:00 Dose: 10 mg Sumatriptan Succinate (Imitrex) 50 mg PO ONETIME ONE Stop: 08/29/17 23:59 Last Admin: 08/30/17 00:28 Dose: 50 mg Sumatriptan Succinate (Imitrex) Confirm Administered Dose 50 mg .ROUTE .STK-MED ONE Stop: 08/30/17 00:04 Last Admin: 08/30/17 00:14 Dose: Not Given - Exam General: Alert, Oriented, Cooperative, Mild Distress Lungs: Clear to Auscultation, Normal Respiratory Effort Cardiovascular: Regular Rate, Regular Rhythm GI/Abdominal Exam: Normal Bowel Sounds, Tender - Problem List & Annotations (1) Migraine headache without aura SNOMED Code(s): 41153769 Code(s): G43.009 - MIGRAINE W/O AURA, NOT INTRACTABLE, W/O STATUS MIGRAINOSUS Status: Acute Current Visit: Yes - Problem List Review Problem List Initiated/Reviewed/Updated: Yes - My Orders Last 24 Hours: My Active Orders 08/30/17 11:53 SUMAtriptan [Imitrex] 50 mg PO Q2H PRN - Plan Plan:: 29-year-old female admitted 08/28/17 for sepsis secondary to pyelonephritis past medical history of GERD. Pyelonephritis/sepsis: Admit to ICU, IV fluid resuscitate with boluses as needed. Levaquin 750 mg every 24, blood cultures and urine culture obtained and pending. Lactate normal. Awaiting results of the ultrasound. Acute kidney injury: Most likely secondary to vol. depletion, IV fluid resuscitate and monitor. Hypokalemia: Replace with potassium supplement. Smoking addiction: Transdermal nicotine Migraine headaches Migraine headache cocktail initiated. Hypomagnesemia -Magnesium has been replaced shall check an a.m. Update 08/30/2017 -Patient's urine culture appears to be going Escherichia coli that is sensitive to Levaquin as such we will continue the patient on Levaquin. Switching the patient to oral Levaquin however. Decrease of the patient's fluids. -For the patient's possible migraine headaches we have added Imitrex if needed for the patient 2 mg initially and if the symptoms persist another 2 mg after 2 hours. Shall reassess the patient in the a.m. VTE: SCD, Lovenox Dispo:2-4 days pending.
[2017-08-30] MEDS: Acetaminophen/HYDROcodone 325-10 MG Tab PO PRN (20:40)
[2017-08-31] MEDS: SUMAtriptan 50 MG Tab PO PRN (03:25)
[2017-08-31] MEDS: Acetaminophen/HYDROcodone 325-10 MG Tab PO PRN (05:02)
[2017-08-31] MEDS: Lactated Ringers 1,000 ML IV SCH (05:20)
[2017-08-31 06:18] LABS: CHLORIDE,CL 104 mmol/L (98-107); SODIUM,NA 136 mmol/L (136-145)
[2017-08-31] MEDS: Enoxaparin 40 MG/0.4 ML Syringe SUBCUT SCH (08:34)
[2017-08-31] MEDS: Nicotine 7 MG/24 Hr Patch TRDERM SCH (08:35)
[2017-08-31] MEDS: Omeprazole 20 MG Cap.CR PO SCH (08:35)
--- NOTE | 2017-08-31 21:19 | PCM.DCSUM1 ---
<Zhao Jones Z - Last Filed: 09/02/17 15:56> Discharge Summary - Hospital Course HPI Initial Comments: Discharge Summary Date of admission: 08/28/2017 Date of discharge: 08/31/2017 Admitting diagnosis: #1. Sepsis secondary urinary tract infection likely gram-negative bacteria #2. Pyelonephritis #3. Chronic gastroesophageal reflux disease #4. #5. Discharge diagnoses: #1. Pyelonephritis secondary to Escherichia coli now stable/resolving #2. Sepsis resolved #3. Chronic gastroesophageal reflux disease #4. Acute headache likely etiology is acute migraine headache assessment to be done by PCP #5. Consultations: None Procedures: None Hospitalization course: Patient was admitted to the ICU secondary to hypotension , tachycardia, elevated fevers due to acute pyelonephritis likely secondary to gram-negative bacteria. Patient required fluid resuscitation and was placed on Levaquin for coverage of complicated pyelonephritis in a patient that has not had a chronic history of pyelonephritis. Patient's sepsis type picture did improve quite quickly overnight secondary to fluid resuscitation. Patient's white count had started to come down secondary to initiation of IV Levaquin. Patient continued to have some mild elevated fevers as well as chills. However patient had stabilized. Patient was although complaining of severe headaches which fit characteristics of an acute migraine headache. Patient has not had migraine headaches in the past. Given a migraine headache cocktail which temporarily relieved the symptoms however the headaches Coming back and the patient was then given Imitrex which seemed to help resolve the patient's headaches. Patient was stable on day of discharge, was transferred to the floor , was put on oral Levaquin, and given prophylactic therapy for migraine headaches as well as an appointment for establishment of care with PCP. Disposition on discharge: Home Condition on discharge: Stable Discharge medications: Continuation of home medication, new medication please check medication list Follow-up instructions: Establishment of care with Dr. Jones - Discharge Data Discharge Date: 08/31/17 Discharge Disposition: Home, Self-Care 01 Condition: Good - Discharge Diagnosis/Problem(s) (1) Migraine headache without aura SNOMED Code(s): 88548044 ICD Code: G43.009 - MIGRAINE W/O AURA, NOT INTRACTABLE, W/O STATUS MIGRAINOSUS Status: Acute - Patient Instructions Diet: Usual Diet as Tolerated Activity: As Tolerated Driving: Do Not Drive Showering/Bathing: May Shower Notify Provider of: Fever, Increased Pain, Swelling and Redness, Nausea and/or Vomiting - Discharge Plan Prescriptions/Med Rec: Amitriptyline [Elavil] 25 mg PO BEDTIME 30 Days #30 tab Levofloxacin [Levaquin] 750 mg PO DAILY 9 Days #9 tab Metoclopramide HCl [Reglan] 10 mg PO DAILY PRN 30 Days #30 tablet PRN Reason: Headache SUMAtriptan [Imitrex] 50 mg PO ONETIME PRN #10 tablet PRN Reason: Headache/Pain Home Medications: Home Meds Esomeprazole Magnesium [Nexium] 20 mg PO DAILY 08/28/17 [History] Amitriptyline [Elavil] 25 mg PO BEDTIME 30 Days #30 tab 08/31/17 [Rx] Levofloxacin [Levaquin] 750 mg PO DAILY 9 Days #9 tab 08/31/17 [Rx] Metoclopramide HCl [Reglan] 10 mg PO DAILY PRN 30 Days #30 tablet 08/31/17 [Rx] SUMAtriptan [Imitrex] 50 mg PO ONETIME PRN #10 tablet 08/31/17 [Rx] Patient Handouts: Migraine Headache, [id number], Metoclopramide tablets, Pyelonephritis, Adult, [id number], Sumatriptan tablets, Levofloxacin tablets, Amitriptyline tablets Referrals: Roscoe Soria MD [Resident] - 09/07/17 9:30 am - Discharge Summary/Plan Comment DC Time >30 min.: No - Patient Data Vitals - Most Recent: Last Vital Signs Temp 36.5 C 08/31/17 11:35 Pulse 80 08/31/17 11:35 Resp 18 08/31/17 11:35 BP 127/70 08/31/17 11:35 Pulse Ox 97 08/31/17 11:35 Weight - Most Recent: 84.8 kg I&O - Last 24 hours: Intake & Output 08/31/17 08/31/17 08/31/17 06:59 14:59 22:59 Intake Total 1500 Output Total 1050 Balance 450 Lab Results - Last 24 hrs: Laboratory Results - last 24 hr 08/31/17 08/31/17 Range/Units 05:26 05:26 WBC 9.21 (4.0-11.0) K/uL RBC 3.65 L (4.30-5.90) M/uL Hgb 11.2 L (12.0-16.0) g/dL Hct 32.4 L (36.0-46.0) % MCV 88.8 (80.0-98.0) fL MCH 30.7 (27.0-32.0) pg MCHC 34.6 (31.0-37.0) g/dL RDW Std Deviation 44.6 (28.0-62.0) fl RDW Coeff of Giovanna 14 (11.0-15.0) % Plt Count 136 L (150-400) K/uL MPV 11.10 (7.40-12.00) fL Neut % (Auto) 77.8 (48.0-80.0) % Lymph % (Auto) 9.6 L (16.0-40.0) % Victoria % (Auto) 12.3 (0.0-15.0) % Eos % (Auto) 0.2 (0.0-7.0) % Baso % (Auto) 0.1 (0.0-1.5) % Neut # (Auto) 7.2 H (1.4-5.7) K/uL Lymph # (Auto) 0.9 (0.6-2.4) K/uL Victoria # (Auto) 1.1 H (0.0-0.8) K/uL Eos # (Auto) 0.0 (0.0-0.7) K/uL Baso # (Auto) 0.0 (0.0-0.1) K/uL Nucleated RBC % 0.0 /100WBC Nucleated RBCs # 0 K/uL Sodium 136 (136-145) mmol/L Potassium 3.6 (3.5-5.1) mmol/L Chloride 104 (98-107) mmol/L Carbon Dioxide 24.6 (21.0-32.0) mmol/L BUN 10 (7.0-18.0) mg/dL Creatinine 0.9 (0.6-1.0) mg/dL Est Cr Clr Drug Dosing 67.03 mL/min Estimated GFR (MDRD) > 60.0 ml/min Glucose 103 (74-106) mg/dL Calcium 8.1 L (8.5-10.1) mg/dL Total Bilirubin 0.5 (0.2-1.0) mg/dL AST 19 (15-37) IU/L ALT 15 (14-63) IU/L Alkaline Phosphatase 48 (46-116) U/L Total Protein 5.5 L (6.4-8.2) g/dL Albumin 2.2 L (3.4-5.0) g/dL Globulin 3.3 (2.0-3.5) g/dL Albumin/Globulin Ratio 0.7 L (1.3-2.8) Med Orders - Current: Current Medications Discontinued Medications Acetaminophen (Tylenol) 650 mg PO NOW ONE Stop: 08/28/17 19:21 Last Admin: 08/28/17 19:27 Dose: 650 mg Acetaminophen (Tylenol) 650 mg PO Q4H PRN PRN Reason: Pain (Mild 1-3)/fever Hydrocodone Bitart/Acetaminophen ([place] 325-5 Mg) 1 tab PO Q4H PRN PRN Reason: Pain (moderate 4-6) Last Admin: 08/30/17 12:54 Dose: 1 tab Hydrocodone Bitart/Acetaminophen ([place] 325-10 Mg) 1 tab PO Q4H PRN PRN Reason: Pain Last Admin: 08/31/17 05:02 Dose: 1 tab Diphenhydramine HCl (Benadryl) 25 mg IVPUSH ONETIME ONE Stop: 08/29/17 10:10 Last Admin: 08/29/17 10:43 Dose: 25 mg Diphenhydramine HCl (Benadryl) 50 mg IVPUSH ONETIME ONE Stop: 08/29/17 19:50 Last Admin: 08/29/17 20:01 Dose: 50 mg Enoxaparin Sodium (Lovenox) 40 mg SUBCUT DAILY LULU Last Admin: 08/31/17 08:34 Dose: 40 mg Hydromorphone HCl (Dilaudid) 1 mg IVPUSH ONETIME ONE Stop: 08/30/17 12:12 Last Admin: 08/30/17 13:05 Dose: Not Given Sodium Chloride (Normal Saline) 1,000 mls @ 999 mls/hr IV .Bolus ONE Stop: 08/28/17 18:52 Last Admin: 08/28/17 17:55 Dose: 999 mls/hr Lactated Ringer's (Ringers, Lactated) 1,000 mls @ 999 mls/hr IV .BOLUS ONE Stop: 08/28/17 19:34 Last Admin: 08/28/17 19:12 Dose: 999 mls/hr Levofloxacin/Dextrose 750 mg/ (Premix) 150 mls @ 100 mls/hr IV ONETIME ONE Stop: 08/28/17 20:42 Last Admin: 08/28/17 19:20 Dose: 100 mls/hr Lactated Ringer's (Ringers, Lactated) 1,000 mls @ 999 mls/hr IV ONETIME ONE Stop: 08/28/17 21:39 Last Admin: 08/28/17 20:47 Dose: 999 mls/hr Lactated Ringer's (Ringers, Lactated) 1,000 mls @ 150 mls/hr IV ASDIRECTED [facility] Last Infusion: 08/30/17 09:16 Dose: Infused Levofloxacin/Dextrose 750 mg/ (Premix) 150 mls @ 100 mls/hr IV Q24H [facility] Last Admin: 08/29/17 19:17 Dose: 100 mls/hr Albumin Human (Buminate 5%) 250 mls @ 125 mls/hr IV Q2H [facility] Stop: 08/29/17 00:59 Last Admin: 08/29/17 00:02 Dose: 125 mls/hr Sodium Chloride (Normal Saline) 1,000 mls @ 1,000 mls/hr IV .Bolus ONE Stop: 08/29/17 06:28 Last Admin: 08/29/17 05:49 Dose: 1,000 mls/hr Magnesium Sulfate 2 gm/ Premix 50 mls @ 50 mls/hr IV ONETIME ONE Stop: 08/29/17 07:58 Last Admin: 08/29/17 07:52 Dose: 50 mls/hr Magnesium Sulfate 4 gm/ Premix 100 mls @ 50 mls/hr IV ONETIME ONE Stop: 08/29/17 10:56 Last Admin: 08/29/17 09:12 Dose: Not Given Lactated Ringer's (Ringers, Lactated) 1,000 mls @ 100 mls/hr IV ASDIRECTED [facility] Last Admin: 08/31/17 05:20 Dose: 100 mls/hr Ibuprofen (Motrin) 400 mg PO Q6H PRN PRN Reason: Other Last Admin: 08/30/17 11:33 Dose: 400 mg Iopamidol (Isovue Multipack-370 (76%)) 100 ml IVPUSH ONETIME STA Stop: 08/28/17 17:50 Last Admin: 08/28/17 17:50 Dose: 100 ml Ketorolac Tromethamine (Toradol) 30 mg IVPUSH ONETIME ONE Stop: 08/28/17 19:18 Last Admin: 08/28/17 19:21 Dose: 30 mg Ketorolac Tromethamine (Toradol) 15 mg IVPUSH ONETIME ONE Stop: 08/29/17 10:10 Last Admin: 08/29/17 10:42 Dose: 15 mg Ketorolac Tromethamine (Toradol) 30 mg IVPUSH ONETIME ONE Stop: 08/29/17 19:50 Last Admin: 08/29/17 19:59 Dose: 30 mg Levofloxacin (Levaquin) 750 mg PO Q24H [facility] Last Admin: 08/30/17 20:41 Dose: 750 mg Metoclopramide HCl (Reglan) 10 mg IVPUSH ONETIME ONE Stop: 08/29/17 10:10 Last Admin: 08/29/17 10:43 Dose: 10 mg Morphine Sulfate (Morphine) 2 mg IVPUSH ONETIME ONE Stop: 08/28/17 16:42 Last Admin: 08/28/17 16:50 Dose: 2 mg Morphine Sulfate (Morphine) 2 mg IVPUSH ONETIME ONE Stop: 08/28/17 18:41 Last Admin: 08/28/17 18:51 Dose: 2 mg Morphine Sulfate (Morphine) 2 mg IVPUSH Q2H PRN PRN Reason: Pain (severe 7-10) Last Admin: 08/30/17 12:14 Dose: 2 mg Morphine Sulfate (Morphine) 2 mg IVPUSH Q2H PRN PRN Reason: Pain (severe 7-10) Nicotine (Habitrol) 7 mg TRDERM DAILY [facility] Last Admin: 08/31/17 08:35 Dose: 7 mg Omeprazole (Omeprazole) 20 mg PO DAILY [facility] Last Admin: 08/31/17 08:35 Dose: 20 mg Ondansetron HCl (Zofran) 4 mg IVPUSH ONETIME ONE Stop: 08/28/17 16:42 Last Admin: 03/20/18 16:50 Dose: 4 mg Ondansetron HCl (Zofran Odt) 4 mg PO Q4H PRN PRN Reason: nausea, able to take PO Ondansetron HCl (Zofran) 4 mg IVPUSH Q4H PRN PRN Reason: Nausea Last Admin: 08/29/17 00:03 Dose: 4 mg Potassium Chloride (Klor-Con M20) 40 meq PO ONETIME ONE Stop: 08/28/17 20:43 Last Admin: 08/28/17 21:32 Dose: 40 meq Prochlorperazine Edisylate (Compazine) 10 mg IVPUSH ONETIME ONE Stop: 08/29/17 19:50 Last Admin: 08/29/17 20:00 Dose: 10 mg Sodium Chloride (Saline Flush) 10 ml FLUSH ASDIRECTED PRN PRN Reason: Keep Vein Open Last Admin: 08/28/17 16:51 Dose: 10 ml Sodium Chloride (Saline Flush) 2.5 ml FLUSH ASDIRECTED PRN PRN Reason: Keep Vein Open Last Admin: 08/28/17 16:51 Dose: 2.5 ml Sumatriptan Succinate (Imitrex) 50 mg PO ONETIME ONE Stop: 08/29/17 23:59 Last Admin: 08/30/17 00:28 Dose: 50 mg Sumatriptan Succinate (Imitrex) Confirm Administered Dose 50 mg .ROUTE .STK-MED ONE Stop: 08/30/17 00:04 Last Admin: 08/30/17 00:14 Dose: Not Given Sumatriptan Succinate (Imitrex) 50 mg PO Q2H PRN PRN Reason: Headache/Pain Last Admin: 08/31/17 03:25 Dose: 50 mg Temazepam (Restoril) 15 mg PO BEDTIME PRN PRN Reason: Sleep <Harish Aguillon - Last Filed: 09/05/17 19:45> - Patient Data Vitals - Most Recent: Last Vital Signs Temp 36.5 C 08/31/17 11:35 Pulse 80 08/31/17 11:35 Resp 18 08/31/17 11:35 BP 127/70 08/31/17 11:35 Pulse Ox 97 08/31/17 11:35 Med Orders - Current: Current Medications Discontinued Medications Acetaminophen (Tylenol) 650 mg PO NOW ONE Stop: 08/28/17 19:21 Last Admin: 08/28/17 19:27 Dose: 650 mg Acetaminophen (Tylenol) 650 mg PO Q4H PRN PRN Reason: Pain (Mild 1-3)/fever Hydrocodone Bitart/Acetaminophen ([place] 325-5 Mg) 1 tab PO Q4H PRN PRN Reason: Pain (moderate 4-6) Last Admin: 08/30/17 12:54 Dose: 1 tab Hydrocodone Bitart/Acetaminophen ([place] 325-10 Mg) 1 tab PO Q4H PRN PRN Reason: Pain Last Admin: 08/31/17 05:02 Dose: 1 tab Diphenhydramine HCl (Benadryl) 25 mg IVPUSH ONETIME ONE Stop: 08/29/17 10:10 Last Admin: 08/29/17 10:43 Dose: 25 mg Diphenhydramine HCl (Benadryl) 50 mg IVPUSH ONETIME ONE Stop: 08/29/17 19:50 Last Admin: 08/29/17 20:01 Dose: 50 mg Enoxaparin Sodium (Lovenox) 40 mg SUBCUT DAILY LULU Last Admin: 08/31/17 08:34 Dose: 40 mg Hydromorphone HCl (Dilaudid) 1 mg IVPUSH ONETIME ONE Stop: 08/30/17 12:12 Last Admin: 08/30/17 13:05 Dose: Not Given Sodium Chloride (Normal Saline) 1,000 mls @ 999 mls/hr IV .Bolus ONE Stop: 08/28/17 18:52 Last Admin: 08/28/17 17:55 Dose: 999 mls/hr Lactated Ringer's (Ringers, Lactated) 1,000 mls @ 999 mls/hr IV .BOLUS ONE Stop: 08/28/17 19:34 Last Admin: 08/28/17 19:12 Dose: 999 mls/hr Levofloxacin/Dextrose 750 mg/ (Premix) 150 mls @ 100 mls/hr IV ONETIME ONE Stop: 08/28/17 20:42 Last Admin: 08/28/17 19:20 Dose: 100 mls/hr Lactated Ringer's (Ringers, Lactated) 1,000 mls @ 999 mls/hr IV ONETIME ONE Stop: 08/28/17 21:39 Last Admin: 08/28/17 20:47 Dose: 999 mls/hr Lactated Ringer's (Ringers, Lactated) 1,000 mls @ 150 mls/hr IV ASDIRECTED [facility] Last Infusion: 08/30/17 09:16 Dose: Infused Levofloxacin/Dextrose 750 mg/ (Premix) 150 mls @ 100 mls/hr IV Q24H [facility] Last Admin: 08/29/17 19:17 Dose: 100 mls/hr Albumin Human (Buminate 5%) 250 mls @ 125 mls/hr IV Q2H [facility] Stop: 08/29/17 00:59 Last Admin: 08/29/17 00:02 Dose: 125 mls/hr Sodium Chloride (Normal Saline) 1,000 mls @ 1,000 mls/hr IV .Bolus ONE Stop: 08/29/17 06:28 Last Admin: 08/29/17 05:49 Dose: 1,000 mls/hr Magnesium Sulfate 2 gm/ Premix 50 mls @ 50 mls/hr IV ONETIME ONE Stop: 08/29/17 07:58 Last Admin: 08/29/17 07:52 Dose: 50 mls/hr Magnesium Sulfate 4 gm/ Premix 100 mls @ 50 mls/hr IV ONETIME ONE Stop: 08/29/17 10:56 Last Admin: 08/29/17 09:12 Dose: Not Given Lactated Ringer's (Ringers, Lactated) 1,000 mls @ 100 mls/hr IV ASDIRECTED [facility] Last Admin: 08/31/17 05:20 Dose: 100 mls/hr Ibuprofen (Motrin) 400 mg PO Q6H PRN PRN Reason: Other Last Admin: 08/30/17 11:33 Dose: 400 mg Iopamidol (Isovue Multipack-370 (76%)) 100 ml IVPUSH ONETIME STA Stop: 08/28/17 17:50 Last Admin: 08/28/17 17:50 Dose: 100 ml Ketorolac Tromethamine (Toradol) 30 mg IVPUSH ONETIME ONE Stop: 08/28/17 19:18 Last Admin: 08/28/17 19:21 Dose: 30 mg Ketorolac Tromethamine (Toradol) 15 mg IVPUSH ONETIME ONE Stop: 08/29/17 10:10 Last Admin: 08/29/17 10:42 Dose: 15 mg Ketorolac Tromethamine (Toradol) 30 mg IVPUSH ONETIME ONE Stop: 08/29/17 19:50 Last Admin: 08/29/17 19:59 Dose: 30 mg Levofloxacin (Levaquin) 750 mg PO Q24H [facility] Last Admin: 08/30/17 20:41 Dose: 750 mg Metoclopramide HCl (Reglan) 10 mg IVPUSH ONETIME ONE Stop: 08/29/17 10:10 Last Admin: 08/29/17 10:43 Dose: 10 mg Morphine Sulfate (Morphine) 2 mg IVPUSH ONETIME ONE Stop: 08/28/17 16:42 Last Admin: 08/28/17 16:50 Dose: 2 mg Morphine Sulfate (Morphine) 2 mg IVPUSH ONETIME ONE Stop: 08/28/17 18:41 Last Admin: 08/28/17 18:51 Dose: 2 mg Morphine Sulfate (Morphine) 2 mg IVPUSH Q2H PRN PRN Reason: Pain (severe 7-10) Last Admin: 08/30/17 12:14 Dose: 2 mg Morphine Sulfate (Morphine) 2 mg IVPUSH Q2H PRN PRN Reason: Pain (severe 7-10) Nicotine (Habitrol) 7 mg TRDERM DAILY [facility] Last Admin: 08/31/17 08:35 Dose: 7 mg Omeprazole (Omeprazole) 20 mg PO DAILY [facility] Last Admin: 08/31/17 08:35 Dose: 20 mg Ondansetron HCl (Zofran) 4 mg IVPUSH ONETIME ONE Stop: 08/28/17 16:42 Last Admin: 08/28/17 16:50 Dose: 4 mg Ondansetron HCl (Zofran Odt) 4 mg PO Q4H PRN PRN Reason: nausea, able to take PO Ondansetron HCl (Zofran) 4 mg IVPUSH Q4H PRN PRN Reason: Nausea Last Admin: 08/29/17 00:03 Dose: 4 mg Potassium Chloride (Klor-Con M20) 40 meq PO ONETIME ONE Stop: 08/28/17 20:43 Last Admin: 08/28/17 21:32 Dose: 40 meq Prochlorperazine Edisylate (Compazine) 10 mg IVPUSH ONETIME ONE Stop: 08/29/17 19:50 Last Admin: 08/29/17 20:00 Dose: 10 mg Sodium Chloride (Saline Flush) 10 ml FLUSH ASDIRECTED PRN PRN Reason: Keep Vein Open Last Admin: 08/28/17 16:51 Dose: 10 ml Sodium Chloride (Saline Flush) 2.5 ml FLUSH ASDIRECTED PRN PRN Reason: Keep Vein Open Last Admin: 08/28/17 16:51 Dose: 2.5 ml Sumatriptan Succinate (Imitrex) 50 mg PO ONETIME ONE Stop: 08/29/17 23:59 Last Admin: 08/30/17 00:28 Dose: 50 mg Sumatriptan Succinate (Imitrex) Confirm Administered Dose 50 mg .ROUTE .STK-MED ONE Stop: 08/30/17 00:04 Last Admin: 08/30/17 00:14 Dose: Not Given Sumatriptan Succinate (Imitrex) 50 mg PO Q2H PRN PRN Reason: Headache/Pain Last Admin: 08/31/17 03:25 Dose: 50 mg Temazepam (Restoril) 15 mg PO BEDTIME PRN PRN Reason: Sleep - Free Text/Narrative Note: I have examined the patient. I have discussed findings and treatment plan with the resident. I agree with the assessment and plan outlined in the following resident's note.
== END 2017-08-31 14:48 | disposition home or self-care (01) | DRG 872 ==
LOC: MW.ED 15:58 → MW.ICU 19:55 → MW.MS 08-30 16:01
PROVIDERS: ADMIT Family Medicine; ATTEND Family Medicine
DX: A41.9 Sepsis, unspecified organism (principal); N10 Acute pyelonephritis; N17.9 Acute kidney failure, unspecified; B96.20 Unspecified Escherichia coli [E. coli] as the cause of diseases classified elsewhere; G43.009 Migraine without aura, not intractable, without status migrainosus; K21.9 Gastro-esophageal reflux disease without esophagitis; I95.9 Hypotension, unspecified; F17.200 Nicotine dependence, unspecified, uncomplicated; E87.6 Hypokalemia; E86.0 Dehydration; E83.42 Hypomagnesemia
CPT/HCPCS: 36415; 74177; 74177-26; 76775; 76775-26; 80053; 81001; 81025; 83605; 83735; 84100; 85025; 87040; 87086; 87088; 87186; 96361; 96365; 96368; 96375; 96376; 99283; 99285-25; A9270-GY; J0780; J1200; J1650; J1885; J1956; J2270; J2405; J2765; J3475; J7040; J7120; Q9967

== ENCOUNTER 2018-09-12 09:41 | Inpatient (IN) | payer BC ==
[2018-09-12] MEDS ORDERED: Sodium Chloride 0.9% 10 ML Syringe FLUSH PRN (10:07)
[2018-09-12] MEDS ORDERED: Sodium Chloride 0.9% 1,000 ML IV ONE ×4 (10:07→13:09)
[2018-09-12] MEDS ORDERED: Ketorolac 30 MG/ML SDV IVPUSH ONE (10:07)
[2018-09-12] MEDS ORDERED: Ondansetron 4 MG/2 ML SDV IVPUSH ONE (10:07)
[2018-09-12] MEDS ORDERED: Sodium Chloride 0.9% 2.5 ML Syringe FLUSH PRN (10:07)
--- NOTE | 2018-09-12 10:11 | EDM.PDOC ---
ED HPI GENERAL MEDICAL PROBLEM - General Chief Complaint: General Stated Complaint: blood infection Time Seen by Provider: 09/12/18 09:44 Source of Information: Reports: Patient History Limitations: Reports: No Limitations - History of Present Illness INITIAL COMMENTS - FREE TEXT/NARRATIVE: History of present illness: []She started having left lower quadrant pain last night has a history of diverticulitis. She called her primary care doctor last night who prescribed her Cipro and Flagyl and she has taken 3 doses. Patient had similar symptoms one year ago and she was diagnosed with urosepsis and admitted to the hospital. Review of systems: As per history of present illness and below otherwise all systems reviewed and negative. Past medical history: As per history of present illness and as reviewed below otherwise noncontributory. Surgical history: As per history of present illness and as reviewed below otherwise noncontributory. Social history: No reported history of drug or alcohol abuse. Family history: As per history of present illness and as reviewed below otherwise noncontributory. Physical exam: General: Well developed, well nourished in NAD HEENT: Atraumatic, normocephalic, pupils reactive, negative for conjunctival pallor or scleral icterus, mucous membranes moist, throat clear, neck supple, nontender, trachea midline. Lungs: Clear to auscultation, breath sounds equal bilaterally, chest nontender. Heart: S1S2, regular, negative for clicks, rubs, or JVD. Abdomen: NABS, Soft, nondistended, nontender. Negative for masses or hepatosplenomegaly. Negative for costovertebral tenderness. Pelvis: Stable nontender. Genitourinary: Deferred. Rectal: Deferred. Extremities: Atraumatic, negative for cords or calf pain. Neurovascular unremarkable. Neuro: Awake, alert, oriented. Cranial nerves II through XII unremarkable. Cerebellum unremarkable. Motor and sensory unremarkable throughout. Exam nonfocal. Skin:warm and dry Diagnostics: CBC elevated 15,000 with a shift, chemistry normal, UA positive for nitrates, leukoesterase and protein negative for white cells, CT abdomen was ordered by hospitalist Therapeutics: IV fluid was 3 L, Toradol, Zofran and ceftriaxone ED Course: Stable Impression: uroSepsis, diverticulitis Prescriptions: Plan: Admit for IV antibiotics Definitive disposition and diagnosis as appropriate pending reevaluation and review of above. headache Pain Score (Numeric/FACES): 4 - Related Data Allergies Allergy/AdvReac Type Severity Reaction Status Date / Time No Known Allergies Allergy Verified 08/28/17 16:36 Home Meds: Home Meds Ciprofloxacin [Ciprofloxacin HCl] 500 mg PO BID 09/12/18 [History] L.acidoph,Paracasei, B.lactis [Probiotic] 2 tab PO DAILY 09/12/18 [History] metroNIDAZOLE [Metronidazole] 500 mg PO TID 09/12/18 [History] traMADol HCl [Tramadol HCl ER] 100 mg PO BID PRN 09/12/18 [History] Past Medical History - Past Health History Medical/Surgical History: Denies Medical/Surgical History Gastrointestinal History: Reports: Other (See Below) Other Gastrointestinal History: Diverticulitis Genitourinary History: Reports: Renal Calculus, Renal Disease Other Genitourinary History: 12mm renal stone- 8 yrs ago 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 ED EXAM, GENERAL - Physical Exam Exam: See Below (See history of present illness) Course - Vital Signs Last Recorded V/S: Last Vital Signs Temp 98 F 09/12/18 17:43 Pulse 63 09/12/18 17:43 Resp 14 09/12/18 17:43 BP 106/66 09/12/18 17:43 Pulse Ox 96 09/12/18 17:43 - Orders/Labs/Meds Orders: Active Orders 24 hr Category Date Time Status Admission Status [Patient Status] [ADT] Stat ADT 09/12/18 12:49 Active NPO [Nothing Per Oral Diet] [DIET] Diet 09/12/18 Dinner Active CULTURE BLOOD [BC] Stat Lab 09/12/18 10:00 Received CULTURE BLOOD [BC] Stat Lab 09/12/18 10:11 Received CULTURE URINE [RM] Routine Lab 09/12/18 10:30 Received Piperacillin/Tazobactam [Piperacil-Tazobact] 4.5 gm Med 09/12/18 13:00 Active Sodium Chloride 0.9% [Normal Saline] 100 ml IV Q6H Sodium Chloride 0.9% [Saline Flush] Med 09/12/18 10:07 Active 10 ml FLUSH ASDIRECTED PRN Sodium Chloride 0.9% [Saline Flush] Med 09/12/18 10:07 Active 2.5 ml FLUSH ASDIRECTED PRN Blood Culture x2 Reflex Set [OM.PC] Stat Ot 09/12/18 09:47 Ordered Saline Lock Insert [OM.PC] Stat Ot 09/12/18 10:07 Ordered Medication Orders Piperacillin Sod/Tazobactam (Sod 4.5 gm/ Sodium Chloride) 100 mls @ 100 mls/hr IV Q6H [facility] Last Admin: 09/12/18 13:48 Dose: 100 mls/hr Sodium Chloride (Normal Saline) 1,000 mls @ 125 mls/hr IV ASDIRECTED [facility] Last Admin: 09/12/18 15:37 Dose: 125 mls/hr Morphine Sulfate (Morphine Sulfate) 3 mg IV Q2H PRN PRN Reason: Pain (severe 7-10) Ondansetron HCl (Zofran) 4 mg IVPUSH Q4H PRN PRN Reason: Nausea Pantoprazole Sodium (Protonix Iv) 40 mg IV Q24H [facility] Last Admin: 09/12/18 14:33 Dose: 40 mg Sodium Chloride (Saline Flush) 10 ml FLUSH ASDIRECTED PRN PRN Reason: Keep Vein Open Last Admin: 09/12/18 10:31 Dose: 10 ml Sodium Chloride (Saline Flush) 2.5 ml FLUSH ASDIRECTED PRN PRN Reason: Keep Vein Open Last Admin: 09/12/18 10:31 Dose: 2.5 ml Labs: Laboratory Tests 09/12/18 09/12/18 09/12/18 Range/Units 10:00 10:00 10:00 WBC 15.19 H (4.0-11.0) K/uL RBC 4.68 (4.30-5.90) M/uL Hgb 14.7 (12.0-16.0) g/dL Hct 42.3 (36.0-46.0) % MCV 90.4 (80.0-98.0) fL MCH 31.4 (27.0-32.0) pg MCHC 34.8 (31.0-37.0) g/dL RDW Std Deviation 43.4 (28.0-62.0) fl RDW Coeff of Giovanna 13 (11.0-15.0) % Plt Count 209 (150-400) K/uL MPV 10.90 (7.40-12.00) fL Neut % (Auto) 81.2 H (48.0-80.0) % Lymph % (Auto) 9.7 L (16.0-40.0) % [place] % (Auto) 8.6 (0.0-15.0) % Eos % (Auto) 0.4 (0.0-7.0) % Baso % (Auto) 0.1 (0.0-1.5) % Neut # (Auto) 12.4 H (1.4-5.7) K/uL Lymph # (Auto) 1.5 (0.6-2.4) K/uL [place] # (Auto) 1.3 H (0.0-0.8) K/uL Eos # (Auto) 0.1 (0.0-0.7) K/uL Baso # (Auto) 0.0 (0.0-0.1) K/uL Nucleated RBC % 0.0 /100WBC Nucleated RBCs # 0 K/uL Lactate 1.6 (0.20-2.00) mmol/L Sodium 137 (136-145) mmol/L Potassium 3.8 (3.5-5.1) mmol/L Chloride 102 (98-107) mmol/L Carbon Dioxide 22.5 (21.0-32.0) mmol/L BUN 13 (7.0-18.0) mg/dL Creatinine 1.1 H (0.6-1.0) mg/dL Est Cr Clr Drug Dosing 54.31 mL/min Estimated GFR (MDRD) 55.3 ml/min Glucose 127 H (74-106) mg/dL Calcium 8.8 (8.5-10.1) mg/dL Total Bilirubin 0.5 (0.2-1.0) mg/dL AST 10 L (15-37) IU/L ALT 17 (14-63) IU/L Alkaline Phosphatase 65 (46-116) U/L Total Protein 7.5 (6.4-8.2) g/dL Albumin 3.7 (3.4-5.0) g/dL Globulin 3.8 (2.6-4.0) g/dL Albumin/Globulin Ratio 1.0 (0.9-1.6) Urine Color Urine Appearance Urine pH (5.0-8.0) Ur Specific [place] (1.001-1.035) Urine Protein (NEGATIVE) mg/dL Urine Glucose (UA) (NEGATIVE) mg/dL Urine Ketones (NEGATIVE) mg/dL Urine Occult Blood (NEGATIVE) Urine Nitrite (NEGATIVE) Urine Bilirubin (NEGATIVE) Urine Ictotest Urine Urobilinogen (<2.0) EU/dL Ur Leukocyte Esterase (NEGATIVE) Urine RBC (0-2/HPF) Urine WBC (0-5/HPF) Ur Epithelial Cells (NONE-FEW) Urine Bacteria (NEGATIVE) Urine Mucus (NONE-MOD) 09/12/18 Range/Units 10:30 WBC (4.0-11.0) K/uL RBC (4.30-5.90) M/uL Hgb (12.0-16.0) g/dL Hct (36.0-46.0) % MCV (80.0-98.0) fL MCH (27.0-32.0) pg MCHC (31.0-37.0) g/dL RDW Std Deviation (28.0-62.0) fl RDW Coeff of Giovanna (11.0-15.0) % Plt Count (150-400) K/uL MPV (7.40-12.00) fL Neut % (Auto) (48.0-80.0) % Lymph % (Auto) (16.0-40.0) % [place] % (Auto) (0.0-15.0) % Eos % (Auto) (0.0-7.0) % Baso % (Auto) (0.0-1.5) % Neut # (Auto) (1.4-5.7) K/uL Lymph # (Auto) (0.6-2.4) K/uL [place] # (Auto) (0.0-0.8) K/uL Eos # (Auto) (0.0-0.7) K/uL Baso # (Auto) (0.0-0.1) K/uL Nucleated RBC % /100WBC Nucleated RBCs # K/uL Lactate (0.20-2.00) mmol/L Sodium (136-145) mmol/L Potassium (3.5-5.1) mmol/L Chloride (98-107) mmol/L Carbon Dioxide (21.0-32.0) mmol/L BUN (7.0-18.0) mg/dL Creatinine (0.6-1.0) mg/dL Est Cr Clr Drug Dosing mL/min Estimated GFR (MDRD) ml/min Glucose (74-106) mg/dL Calcium (8.5-10.1) mg/dL Total Bilirubin (0.2-1.0) mg/dL AST (15-37) IU/L ALT (14-63) IU/L Alkaline Phosphatase (46-116) U/L Total Protein (6.4-8.2) g/dL Albumin (3.4-5.0) g/dL Globulin (2.6-4.0) g/dL Albumin/Globulin Ratio (0.9-1.6) Urine Color YELLOW Urine Appearance CLEAR Urine pH 6.0 (5.0-8.0) Ur Specific [place] >= 1.030 (1.001-1.035) Urine Protein 100 H (NEGATIVE) mg/dL Urine Glucose (UA) NEGATIVE (NEGATIVE) mg/dL Urine Ketones TRACE H (NEGATIVE) mg/dL Urine Occult Blood NEGATIVE (NEGATIVE) Urine Nitrite POSITIVE H (NEGATIVE) Urine Bilirubin SMALL H (NEGATIVE) Urine Ictotest NEGATIVE Urine Urobilinogen 1.0 (<2.0) EU/dL Ur Leukocyte Esterase TRACE H (NEGATIVE) Urine RBC 0-2 (0-2/HPF) Urine WBC 0-2 (0-5/HPF) Ur Epithelial Cells FEW (NONE-FEW) Urine Bacteria FEW (NEGATIVE) Urine Mucus MODERATE (NONE-MOD) Meds: Medications Generic Name Dose Route Start Last Admin Trade Name Freq PRN Reason Stop Dose Admin Piperacillin Sod/Tazobactam 100 mls @ 100 mls/hr 09/12/18 13:00 09/12/18 13: 48 Sod 4.5 gm/ Sodium Chloride IV 100 mls/hr Q6H [facility] Administration Sodium Chloride 1,000 mls @ 125 mls/hr 09/12/18 13:45 04/04/19 15:37 Normal Saline IV 125 mls/hr ASDIRECTED [facility] Administration Morphine Sulfate 3 mg 09/12/18 13:40 Morphine Sulfate IV Q2H PRN Pain (severe 7-10) Ondansetron HCl 4 mg 09/12/18 13:41 Zofran IVPUSH Q4H PRN Nausea Pantoprazole Sodium 40 mg 09/12/18 13:45 09/12/18 14:33 Protonix Iv IV 40 mg Q24H [facility] Administration Sodium Chloride 10 ml 09/12/18 10:07 09/12/18 10:31 Saline Flush FLUSH 10 ml ASDIRECTED PRN Administration Keep Vein Open Sodium Chloride 2.5 ml 09/12/18 10:07 09/12/18 10:31 Saline Flush FLUSH 2.5 ml ASDIRECTED PRN Administration Keep Vein Open Discontinued Medications Generic Name Dose Route Start Last Admin Trade Name Freq PRN Reason Stop Dose Admin Sodium Chloride 1,000 mls @ 999 mls/hr 09/12/18 10:07 09/12/18 10:31 Normal Saline IV 09/12/18 11:07 999 mls/hr .Bolus ONE Administration Ceftriaxone Sodium/Dextrose 1 50 mls @ 100 mls/hr 09/12/18 10:50 09/12/18 10: 59 gm/ Premix IV 09/12/18 11:19 100 mls/hr ONETIME ONE Administration Sodium Chloride 1,000 mls @ 999 mls/hr 09/12/18 12:05 09/12/18 12:07 Normal Saline IV 09/12/18 13:05 999 mls/hr .Bolus ONE Administration Sodium Chloride 1,000 mls @ 999 mls/hr 09/12/18 12:47 09/12/18 14:25 Normal Saline IV 09/12/18 13:47 999 mls/hr .Bolus ONE Administration Sodium Chloride 1,000 mls @ 999 mls/hr 09/12/18 13:09 09/12/18 13:11 Normal Saline IV 09/12/18 14:09 999 mls/hr .Bolus ONE Administration Ketorolac Tromethamine 30 mg 09/12/18 10:07 09/12/18 10:32 Toradol IVPUSH 09/12/18 10:08 30 mg ONETIME ONE Administration Ondansetron HCl 4 mg 09/12/18 10:07 09/12/18 10:31 Zofran IVPUSH 09/12/18 10:08 4 mg ONETIME ONE Administration Departure - Departure Time of Disposition: 13:55 Disposition: Admitted As Inpatient 65 Condition: Good Clinical Impression: Diverticulitis, Ureterolithiasis Sepsis Qualifiers: Sepsis type: sepsis due to unspecified organism Qualified Code(s): A41.9 - Sepsis, unspecified organism - Discharge Information *PRESCRIPTION DRUG MONITORING PROGRAM REVIEWED*: No *COPY OF PRESCRIPTION DRUG MONITORING REPORT IN PATIENT TALI: No - My Orders Last 24 Hours: My Active Orders 09/12/18 09:47 Blood Culture x2 Reflex Set [OM.PC] Stat 09/12/18 10:00 CULTURE BLOOD [BC] Stat 09/12/18 10:07 Sodium Chloride 0.9% [Saline Flush] 10 ml FLUSH ASDIRECTED PRN Sodium Chloride 0.9% [Saline Flush] 2.5 ml FLUSH ASDIRECTED PRN Saline Lock Insert [OM.PC] Stat 09/12/18 10:11 CULTURE BLOOD [BC] Stat 09/12/18 10:30 CULTURE URINE [RM] Routine - Assessment/Plan Last 24 Hours: My Active Orders 09/12/18 09:47 Blood Culture x2 Reflex Set [OM.PC] Stat 09/12/18 10:00 CULTURE BLOOD [BC] Stat 09/12/18 10:07 Sodium Chloride 0.9% [Saline Flush] 10 ml FLUSH ASDIRECTED PRN Sodium Chloride 0.9% [Saline Flush] 2.5 ml FLUSH ASDIRECTED PRN Saline Lock Insert [OM.PC] Stat 09/12/18 10:11 CULTURE BLOOD [BC] Stat 09/12/18 10:30 CULTURE URINE [RM] Routine
[2018-09-12] MEDS ORDERED: cefTRIAXone 1 GM in Premix Bag 1 BAG IV ONE (10:50)
--- NOTE | 2018-09-12 12:56 | PCM.HP ---
H&P History of Present Illness - General Date of Service: 09/12/18 Admit Problem/Dx: Admission Diagnosis/Problem Admission Diagnosis/Problem Abdominal pain Source of Information: Patient History Limitations: Reports: No Limitations - History of Present Illness Initial Comments - Free Text/Narative: This 38 year old female with pmh of diverticulosis and diverticulitis as well as recurrent UTIs with pyelonephritis presented to the ED today with complaints of LLQ pain, nausea and overall not feeling well. She reports she called her PCP on Sunday with complaints of this pain and was sent Cipro and Flagyl, which she has taken 3-4 doses of, but is not eating well and is becoming nauseated from the medications. She reports subjective fevers at home and chills and generalized malaise. She reports her family felt she started appearing ill over the weekend, where she started feeling ill on Sunday. She denies diarrhea, no black or bloody diarrhea. She denies chest pain or SOB. Confirms LLQ pain as well as low back pain. She is voiding with no issues, no urinary symptoms. In the ED, leukocytosis noted at 15,190, lactate 1.6, BUN 13, Cr 1.1. Ua + nitrite, trace leukocyte esterase, few bacteria. UC, BC obtained and pending from ED. She was given 2 L bolus and Rocephin in the ED. Initially in the ED, BP 80/40s, before IVFs. Post fluids she improved to 107/70. There was initial discussion of transfer due to no ICU bed available. Post fluids, she appears improved and is safe to be admitted inpatient on Med/Surg. headache Pain Score (Numeric/FACES): 4 - Related Data Allergies/Adverse Reactions: Allergies Allergy/AdvReac Type Severity Reaction Status Date / Time No Known Allergies Allergy Verified 08/28/17 16:36 Home Medications: Home Meds Ciprofloxacin [Ciprofloxacin HCl] 500 mg PO BID 09/12/18 [History] L.acidoph,Paracasei, B.lactis [Probiotic] 2 tab PO DAILY 09/12/18 [History] metroNIDAZOLE [Metronidazole] 500 mg PO TID 09/12/18 [History] traMADol HCl [Tramadol HCl ER] 100 mg PO BID PRN 09/12/18 [History] Past Medical History - Past Health History Medical/Surgical History: Denies Medical/Surgical History Cardiovascular History: Reports: None. Denies: Afib, Blood Clots/VTE/DVT, CAD, Cardiomyopathy, High Cholesterol, Hypertension Respiratory History: Reports: None. 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 Denies: CVA Psychiatric History: Reports: None Endocrine/Metabolic History: Reports: Obesity/BMI 30+. Denies: Diabetes, Type II Social & Family History - Family History Family Medical History: Noncontributory - Tobacco Use Smoking Status *Q: Current Every Day Smoker Years of Tobacco use: 22 Packs/Tins Daily: 0.5 - Caffeine Use Caffeine Use: Reports: Coffee - Alcohol Use Alcohol Use History: No - Recreational Drug Use Recreational Drug Use: No - Living Situation & Occupation Living situation: Reports: Occupation: Employed H&P Review of Systems - Review of Systems: Review Of Systems: See Below General: Reports: Fever, Chills, Malaise, Decreased Appetite HEENT: Reports: No Symptoms, Headaches (migraine). Denies: Sinus Congestion, Sore Throat Pulmonary: Reports: No Symptoms. Denies: Shortness of Breath, Cough, Sputum Cardiovascular: Reports: No Symptoms. Denies: Chest Pain, Palpitations, Dyspnea on Exertion, Edema Gastrointestinal: Reports: Abdominal Pain (LLQ and low back), Decreased Appetite , Distension, Nausea. Denies: Black Stool, Bloody Stool, Diarrhea, Hematemesis , Vomiting Genitourinary: Reports: No Symptoms. Denies: Dysuria, Frequency, Burning, Flank Pain Musculoskeletal: Reports: Back Pain (across low back). Denies: Neck Pain Skin: Reports: No Symptoms Psychiatric: Reports: No Symptoms Neurological: Reports: No Symptoms Hematologic/Lymphatic: Reports: No Symptoms Immunologic: Reports: No Symptoms Exam - Exam Exam: See Below - Vital Signs Vital Signs: Last Vital Signs Temp 98.1 F 09/12/18 09:51 Pulse 80 09/12/18 12:30 Resp 13 09/12/18 12:30 BP 107/71 09/12/18 12:30 Pulse Ox 95 09/12/18 12:30 Weight: 79.379 kg - Exam Quality Assessment: No: Supplemental Oxygen General: Alert, Oriented HEENT: Conjunctiva Clear, Mucosa Moist & [place], Posterior Pharynx Clear Neck: Supple, Trachea Midline, Full Range of Motion (no nuchal rigidity) Lungs: Clear to Auscultation Cardiovascular: Regular Rate, Regular Rhythm, Normal S1, Normal S2 GI/Abdominal Exam: Normal Bowel Sounds, Soft, Distended, Tender (extreme tenderness noted to LLQ with light palpation. ) Back Exam: Normal Inspection, Full Range of Motion. No: CVA Tenderness (L), CVA Tenderness (R) Neurological: Cranial Nerves Intact Neuro Extensive - Mental Status: Alert, Oriented x3 Neuro Extensive - Motor, Sensory, Reflexes: CN II-XII Intact Psychiatric: Alert, Normal Affect, Normal Mood - Patient Data Lab Results Last 24 hrs: Laboratory Results - last 24 hr 09/12/18 09/12/18 09/12/18 Range/Units 10:00 10:00 10:00 WBC 15.19 H (4.0-11.0) K/uL RBC 4.68 (4.30-5.90) M/uL Hgb 14.7 (12.0-16.0) g/dL Hct 42.3 (36.0-46.0) % MCV 90.4 (80.0-98.0) fL MCH 31.4 (27.0-32.0) pg MCHC 34.8 (31.0-37.0) g/dL RDW Std Deviation 43.4 (28.0-62.0) fl RDW Coeff of Giovanna 13 (11.0-15.0) % Plt Count 209 (150-400) K/uL MPV 10.90 (7.40-12.00) fL Neut % (Auto) 81.2 H (48.0-80.0) % Lymph % (Auto) 9.7 L (16.0-40.0) % [place] % (Auto) 8.6 (0.0-15.0) % Eos % (Auto) 0.4 (0.0-7.0) % Baso % (Auto) 0.1 (0.0-1.5) % Neut # (Auto) 12.4 H (1.4-5.7) K/uL Lymph # (Auto) 1.5 (0.6-2.4) K/uL [place] # (Auto) 1.3 H (0.0-0.8) K/uL Eos # (Auto) 0.1 (0.0-0.7) K/uL Baso # (Auto) 0.0 (0.0-0.1) K/uL Nucleated RBC % 0.0 /100WBC Nucleated RBCs # 0 K/uL Lactate 1.6 (0.20-2.00) mmol/L Sodium 137 (136-145) mmol/L Potassium 3.8 (3.5-5.1) mmol/L Chloride 102 (98-107) mmol/L Carbon Dioxide 22.5 (21.0-32.0) mmol/L BUN 13 (7.0-18.0) mg/dL Creatinine 1.1 H (0.6-1.0) mg/dL Est Cr Clr Drug Dosing 54.31 mL/min Estimated GFR (MDRD) 55.3 ml/min Glucose 127 H (74-106) mg/dL Calcium 8.8 (8.5-10.1) mg/dL Total Bilirubin 0.5 (0.2-1.0) mg/dL AST 10 L (15-37) IU/L ALT 17 (14-63) IU/L Alkaline Phosphatase 65 (46-116) U/L Total Protein 7.5 (6.4-8.2) g/dL Albumin 3.7 (3.4-5.0) g/dL Globulin 3.8 (2.6-4.0) g/dL Albumin/Globulin Ratio 1.0 (0.9-1.6) Urine Color Urine Appearance Urine pH (5.0-8.0) Ur Specific [place] (1.001-1.035) Urine Protein (NEGATIVE) mg/dL Urine Glucose (UA) (NEGATIVE) mg/dL Urine Ketones (NEGATIVE) mg/dL Urine Occult Blood (NEGATIVE) Urine Nitrite (NEGATIVE) Urine Bilirubin (NEGATIVE) Urine Ictotest Urine Urobilinogen (<2.0) EU/dL Ur Leukocyte Esterase (NEGATIVE) Urine RBC (0-2/HPF) Urine WBC (0-5/HPF) Ur Epithelial Cells (NONE-FEW) Urine Bacteria (NEGATIVE) Urine Mucus (NONE-MOD) 09/12/18 Range/Units 10:30 WBC (4.0-11.0) K/uL RBC (4.30-5.90) M/uL Hgb (12.0-16.0) g/dL Hct (36.0-46.0) % MCV (80.0-98.0) fL MCH (27.0-32.0) pg MCHC (31.0-37.0) g/dL RDW Std Deviation (28.0-62.0) fl RDW Coeff of Giovanna (11.0-15.0) % Plt Count (150-400) K/uL MPV (7.40-12.00) fL Neut % (Auto) (48.0-80.0) % Lymph % (Auto) (16.0-40.0) % [place] % (Auto) (0.0-15.0) % Eos % (Auto) (0.0-7.0) % Baso % (Auto) (0.0-1.5) % Neut # (Auto) (1.4-5.7) K/uL Lymph # (Auto) (0.6-2.4) K/uL [place] # (Auto) (0.0-0.8) K/uL Eos # (Auto) (0.0-0.7) K/uL Baso # (Auto) (0.0-0.1) K/uL Nucleated RBC % /100WBC Nucleated RBCs # K/uL Lactate (0.20-2.00) mmol/L Sodium (136-145) mmol/L Potassium (3.5-5.1) mmol/L Chloride (98-107) mmol/L Carbon Dioxide (21.0-32.0) mmol/L BUN (7.0-18.0) mg/dL Creatinine (0.6-1.0) mg/dL Est Cr Clr Drug Dosing mL/min Estimated GFR (MDRD) ml/min Glucose (74-106) mg/dL Calcium (8.5-10.1) mg/dL Total Bilirubin (0.2-1.0) mg/dL AST (15-37) IU/L ALT (14-63) IU/L Alkaline Phosphatase (46-116) U/L Total Protein (6.4-8.2) g/dL Albumin (3.4-5.0) g/dL Globulin (2.6-4.0) g/dL Albumin/Globulin Ratio (0.9-1.6) Urine Color YELLOW Urine Appearance CLEAR Urine pH 6.0 (5.0-8.0) Ur Specific [place] >= 1.030 (1.001-1.035) Urine Protein 100 H (NEGATIVE) mg/dL Urine Glucose (UA) NEGATIVE (NEGATIVE) mg/dL Urine Ketones TRACE H (NEGATIVE) mg/dL Urine Occult Blood NEGATIVE (NEGATIVE) Urine Nitrite POSITIVE H (NEGATIVE) Urine Bilirubin SMALL H (NEGATIVE) Urine Ictotest NEGATIVE Urine Urobilinogen 1.0 (<2.0) EU/dL Ur Leukocyte Esterase TRACE H (NEGATIVE) Urine RBC 0-2 (0-2/HPF) Urine WBC 0-2 (0-5/HPF) Ur Epithelial Cells FEW (NONE-FEW) Urine Bacteria FEW (NEGATIVE) Urine Mucus MODERATE (NONE-MOD) Result Diagrams: 09/12/18 10:00 09/12/18 10:00 - Problem List (1) Sepsis SNOMED Code(s): 09105743 ICD Code: A41.9 - SEPSIS, UNSPECIFIED ORGANISM Status: Acute Current Visit: Yes Qualifiers: Sepsis type: sepsis due to unspecified organism Qualified Code(s): A41.9 - Sepsis, unspecified organism (2) Abdominal pain SNOMED Code(s): 00535532 ICD Code: R10.9 - UNSPECIFIED ABDOMINAL PAIN Status: Acute Current Visit : Yes Qualifiers: Abdominal location: left lower quadrant Qualified Code(s): R10.32 - Left lower quadrant pain (3) Chronic GERD SNOMED Code(s): 156758559, 455774148 ICD Code: K21.9 - GASTRO-ESOPHAGEAL REFLUX DISEASE WITHOUT ESOPHAGITIS Status: Chronic Priority: Low Current Visit: No Problem List Initiated/Reviewed/Updated: Yes Orders Last 24hrs: Active Orders 24 hr Category Date Time Status Admission Status [Patient Status] [ADT] Stat ADT 09/12/18 12:49 Ordered NPO [Nothing Per Oral Diet] [DIET] Diet 09/12/18 Dinner Ordered Abdomen Pelvis wo Cont [CT] Stat Exams 09/12/18 12:46 Ordered CULTURE BLOOD [BC] Stat Lab 09/12/18 10:00 Received CULTURE BLOOD [BC] Stat Lab 09/12/18 10:11 Received CULTURE URINE [RM] Routine Lab 09/12/18 10:30 Received Sodium Chloride 0.9% [Normal Saline] 1,000 ml Med 09/12/18 12:05 Active IV .Bolus Sodium Chloride 0.9% [Normal Saline] 1,000 ml Med 09/12/18 12:47 Ordered IV .Bolus Sodium Chloride 0.9% [Saline Flush] Med 09/12/18 10:07 Active 10 ml FLUSH ASDIRECTED PRN Sodium Chloride 0.9% [Saline Flush] Med 09/12/18 10:07 Active 2.5 ml FLUSH ASDIRECTED PRN Blood Culture x2 Reflex Set [OM.PC] Stat Ot 09/12/18 09:47 Ordered Saline Lock Insert [OM.PC] Stat Ot 09/12/18 10:07 Ordered Medication Orders Sodium Chloride (Normal Saline) 1,000 mls @ 999 mls/hr IV .Bolus ONE Stop: 09/12/18 13:05 Last Admin: 09/12/18 12:07 Dose: 999 mls/hr Sodium Chloride (Normal Saline) 1,000 mls @ 999 mls/hr IV .Bolus ONE Stop: 09/12/18 13:47 Sodium Chloride (Saline Flush) 10 ml FLUSH ASDIRECTED PRN PRN Reason: Keep Vein Open Last Admin: 09/12/18 10:31 Dose: 10 ml Sodium Chloride (Saline Flush) 2.5 ml FLUSH ASDIRECTED PRN PRN Reason: Keep Vein Open Last Admin: 09/12/18 10:31 Dose: 2.5 ml Assessment/Plan Comment:: This 38 year old female admitted with LLQ abdominal pain 1. LLQ Abdominal pain: Abdominal CT reveals distal descending colon diverticulitis without evidence of perforation. Will order 1 more fluid bolus now. Will also order Zosyn 4.5 mg IV every 6hours. NPO tonight. Zofran and analgesic PRN. 2. GERD: Protonix IV due to NPO status. VTE prophylaxis: Lovenox. Dispo: 2-3 days pending improvement.
[2018-09-12] MEDS ORDERED: Ondansetron 4 MG/2 ML SDV IVPUSH PRN (13:41)
[2018-09-12] MEDS: Piperacillin/Tazobactam 4.5 GM in Sodium Chloride 0.9% 100 ML IV SCH ×2 (13:48→18:49)
--- NOTE | 2018-09-12 14:09 | CT ---
CT of the abdomen and pelvis without contrast. HISTORY: Pain TECHNIQUE: Axial CT images were obtained of the abdomen and pelvis without contrast. Coronal and sagittal reconstructions obtained. FINDINGS: The lung bases are clear, no pleural effusion. Deflated breast implants are noted. Tiny hepatic cysts are noted. The spleen, adrenal glands, and pancreas appear unremarkable for noncontrast examination. The gallbladder appears normal. There is no bulky retroperitoneal lymphadenopathy. No abdominal ascites. Punctate nonobstructing stone within the lower pole of the right kidney. The large and small bowel are normal in caliber without evidence of obstruction. The appendix appears normal. There is diverticulosis with adjacent stranding within the distal descending colon. There is no bulky pelvic lymphadenopathy. No free fluid. No free air. The urinary bladder appears normal. The visualized osseous structures appear normal. IMPRESSION: 1. Distal descending colon diverticulitis without evidence of perforation. 2. Punctate nonobstructing stone within the lower pole of the right kidney.
[2018-09-12] MEDS: Pantoprazole 40 MG Vial IV SCH (14:33)
[2018-09-12] MEDS: Sodium Chloride 0.9% 1,000 ML IV SCH (15:37)
[2018-09-13] MEDS: Piperacillin/Tazobactam 4.5 GM in Sodium Chloride 0.9% 100 ML IV SCH ×3 (00:39→13:05)
[2018-09-13] MEDS: Sodium Chloride 0.9% 1,000 ML IV SCH ×2 (00:41→10:44)
[2018-09-13 06:46] LABS: CHLORIDE,CL 110 mmol/L (98-107); SODIUM,NA 142 mmol/L (136-145)
[2018-09-13] MEDS: Pantoprazole 40 MG Vial IV SCH (13:05)
--- NOTE | 2018-09-13 15:36 | PCM.DCSUM1 ---
Discharge Summary - Hospital Course Brief History: This 38 year old female with pmh of diverticulosis and diverticulitis as well as recurrent UTIs with pyelonephritis presented to the ED today with complaints of LLQ pain, nausea and overall not feeling well. She reports she called her PCP on Sunday with complaints of this pain and was sent Cipro and Flagyl, which she has taken 3-4 doses of, but is not eating well and is becoming nauseated from the medications. She reports subjective fevers at home and chills and generalized malaise. She reports her family felt she started appearing ill over the weekend, where she started feeling ill on Sunday. She denies diarrhea, no black or bloody diarrhea. She denies chest pain or SOB. Confirms LLQ pain as well as low back pain. She is voiding with no issues, no urinary symptoms. In the ED, leukocytosis noted at 15,190, lactate 1.6, BUN 13, Cr 1.1. Ua +nitrite, trace leukocyte esterase, few bacteria. UC, BC obtained and pending from ED. She was given 2 L bolus and Rocephin in the ED. Initially in the ED, BP 80/40s, before IVFs. Post fluids she improved to 107 /70. She was admitted secondary to sepsis and diverticulitis. Diagnosis: Stroke: No - Discharge Data Discharge Date: 09/13/18 Discharge Disposition: Home, Self-Care 01 Condition: Stable - Discharge Diagnosis/Problem(s) (1) Sepsis SNOMED Code(s): 83143188 ICD Code: A41.9 - SEPSIS, UNSPECIFIED ORGANISM Status: Acute Current Visit: Yes Qualifiers: Sepsis type: sepsis due to unspecified organism Qualified Code(s): A41.9 - Sepsis, unspecified organism (2) Abdominal pain SNOMED Code(s): 29199429 ICD Code: R10.9 - UNSPECIFIED ABDOMINAL PAIN Status: Acute Current Visit : Yes Qualifiers: Abdominal location: left lower quadrant Qualified Code(s): R10.32 - Left lower quadrant pain (3) Chronic GERD SNOMED Code(s): 915641897, 779207040 ICD Code: K21.9 - GASTRO-ESOPHAGEAL REFLUX DISEASE WITHOUT ESOPHAGITIS Status: Chronic Priority: Low Current Visit: No (4) Diverticulitis SNOMED Code(s): 165986561 ICD Code: K57.92 - DVTRCLI OF INTEST, PART UNSP, W/O PERF OR ABSCESS W/O BLEED Status: Acute Current Visit: Yes - Patient Instructions Diet: GI Soft/Low Residue/Low Fiber (for next couple weeks. then transition to high fiber) Activity: As Tolerated Driving: May Drive Today Showering/Bathing: May Shower Notify Provider of: Fever, Increased Pain, Swelling and Redness, Drainage, Nausea and/or Vomiting - Discharge Plan *PRESCRIPTION DRUG MONITORING PROGRAM REVIEWED*: No *COPY OF PRESCRIPTION DRUG MONITORING REPORT IN PATIENT TALI: No Home Medications: Home Meds L.acidoph,Paracasei, B.lactis [Probiotic] 2 tab PO DAILY 09/12/18 [History] traMADol HCl [Tramadol HCl ER] 100 mg PO BID PRN 09/12/18 [History] Ciprofloxacin [Ciprofloxacin HCl] 500 mg PO BID #0 09/13/18 [Rx] metroNIDAZOLE [Metronidazole] 500 mg PO TID #0 09/13/18 [Rx] Oxygen Therapy Mode: Room Air Patient Handouts: Diverticulitis, Dolo-cy-Xoob, Low-Fiber Eating Plan Referrals: Maury Gama MD [Physician] - 10/03/18 10:30 am Coni Frazier NP [Ordering Only Provider] - 09/23/18 11:15 am PCP,Unknown [Primary Care Provider] - - Discharge Summary/Plan Comment DC Time >30 min.: No Discharge Summary/Plan Comment: Discharge Diagnoses: Decending colon diverticulitis sepsis-resolved Hx GERD Hx pyelonephritis and recurrent UTIs Monica was admitted secondary to abdominal pain. CT was obtained because source of infection not quite clear. CT of abdomen/pelvis revealed decending colon diverticulitis without evidence of perforation or abscess. She was treated with ZOsyn and bowel rest. Pain was well controlled overnight, she did not need pain medications. She reports today she is feeling better and is wanting to go home. We trialed CL diet, which she did well with and denied increased pain. She will be discharged home today. She is to continue Ciprofloxacin and Flagyl she was given and only took 3 doses out of. She was educated on CL and slowly advance diet to soft low fiber GI diet for next couple weeks. She then should increase fiber due to diverticulosis. She and verbalized understanding. She has never had colonoscopy since diagnoses of this. She was scheduled with Dr Gama for colonoscopy and further treatment. She and have no further questions. She is to return to ED or clinic if concerns should arise. - General Info Date of Service: 09/13/18 Admission Dx/Problem (Free Text: Admission Diagnosis/Problem Admission Diagnosis/Problem Abdominal pain Subjective Update: DOing well today and is eager to go home. She was trialed on CL diet today and has no increase in pain and is requesting discharge. No abdominal pain, only mild discomfort. Functional Status: Reports: Pain Controlled, Tolerating Diet, Ambulating, Urinating - Review of Systems General: Reports: No Symptoms. Denies: Fever, Weakness, Fatigue, Malaise HEENT: Reports: No Symptoms. Denies: Headaches, Sore Throat, Visual Changes Pulmonary: Reports: No Symptoms. Denies: Shortness of Breath Cardiovascular: Reports: No Symptoms. Denies: Chest Pain Gastrointestinal: Reports: No Symptoms, Flatus. Denies: Abdominal Pain, Diarrhea, Hematochezia, Melena, Nausea, Vomiting Genitourinary: Reports: No Symptoms. Denies: Dysuria, Frequency, Burning Musculoskeletal: Reports: No Symptoms Skin: Reports: No Symptoms Neurological: Reports: No Symptoms Psychiatric: Reports: No Symptoms - Patient Data Vitals - Most Recent: Last Vital Signs Temp 98.1 F 09/13/18 12:00 Pulse 80 09/13/18 12:00 Resp 16 09/13/18 12:00 BP 105/68 09/13/18 12:00 Pulse Ox 95 09/13/18 12:00 Weight - Most Recent: 79.379 kg I&O - Last 24 hours: Intake & Output 09/13/18 09/13/18 09/13/18 06:59 14:59 22:59 Intake Total 1425 Output Total 300 Balance 1125 Lab Results - Last 24 hrs: Laboratory Results - last 24 hr 09/13/18 09/13/18 Range/Units 05:55 05:55 WBC 9.32 (4.0-11.0) K/uL RBC 3.71 L (4.30-5.90) M/uL Hgb 11.5 L (12.0-16.0) g/dL Hct 34.3 L (36.0-46.0) % MCV 92.5 (80.0-98.0) fL MCH 31.0 (27.0-32.0) pg MCHC 33.5 (31.0-37.0) g/dL RDW Std Deviation 44.6 (28.0-62.0) fl RDW Coeff of Giovanna 13 (11.0-15.0) % Plt Count 163 (150-400) K/uL MPV 11.00 (7.40-12.00) fL Neut % (Auto) 68.8 (48.0-80.0) % Lymph % (Auto) 19.3 (16.0-40.0) % Hyde % (Auto) 10.6 (0.0-15.0) % Eos % (Auto) 1.1 (0.0-7.0) % Baso % (Auto) 0.2 (0.0-1.5) % Neut # (Auto) 6.4 H (1.4-5.7) K/uL Lymph # (Auto) 1.8 (0.6-2.4) K/uL Hyde # (Auto) 1.0 H (0.0-0.8) K/uL Eos # (Auto) 0.1 (0.0-0.7) K/uL Baso # (Auto) 0.0 (0.0-0.1) K/uL Nucleated RBC % 0.0 /100WBC Nucleated RBCs # 0 K/uL Sodium 142 (136-145) mmol/L Potassium 3.6 (3.5-5.1) mmol/L Chloride 110 H (98-107) mmol/L Carbon Dioxide 21.9 (21.0-32.0) mmol/L BUN 12 (7.0-18.0) mg/dL Creatinine 0.9 (0.6-1.0) mg/dL Est Cr Clr Drug Dosing 66.37 mL/min Estimated GFR (MDRD) > 60.0 ml/min Glucose 83 (74-106) mg/dL Calcium 7.8 L (8.5-10.1) mg/dL ROSS Results - Last 24 hrs: Microbiology 09/12/18 10:11 Aerobic Blood Culture - Preliminary Blood - Venous - Lab Draw NO GROWTH AFTER 1 DAY Anaerobic Blood Culture - Preliminary NO GROWTH AFTER 1 DAY 09/12/18 10:00 Aerobic Blood Culture - Preliminary Blood - Venous NO GROWTH AFTER 1 DAY Anaerobic Blood Culture - Preliminary NO GROWTH AFTER 1 DAY Med Orders - Current: Current Medications Piperacillin Sod/Tazobactam (Sod 4.5 gm/ Sodium Chloride) 100 mls @ 100 mls/hr IV Q6H FOR[facility], 1928–1983 Last Admin: 09/13/18 13:05 Dose: 100 mls/hr Sodium Chloride (Normal Saline) 1,000 mls @ 125 mls/hr IV ASDIRECTED FORMERLY [facility], 1928–1983 Last Admin: 09/13/18 10:44 Dose: 125 mls/hr Morphine Sulfate (Morphine Sulfate) 3 mg IV Q2H PRN PRN Reason: Pain (severe 7-10) Ondansetron HCl (Zofran) 4 mg IVPUSH Q4H PRN PRN Reason: Nausea Pantoprazole Sodium (Protonix Iv) 40 mg IV Q24H [facility], [facility]1983 Last Admin: 09/13/18 13:05 Dose: 40 mg Sodium Chloride (Saline Flush) 10 ml FLUSH ASDIRECTED PRN PRN Reason: Keep Vein Open Last Admin: 09/12/18 10:31 Dose: 10 ml Sodium Chloride (Saline Flush) 2.5 ml FLUSH ASDIRECTED PRN PRN Reason: Keep Vein Open Last Admin: 09/12/18 10:31 Dose: 2.5 ml Discontinued Medications Sodium Chloride (Normal Saline) 1,000 mls @ 999 mls/hr IV .Bolus ONE Stop: 09/12/18 11:07 Last Admin: 09/12/18 10:31 Dose: 999 mls/hr Ceftriaxone Sodium/Dextrose 1 (gm/ Premix) 50 mls @ 100 mls/hr IV ONETIME ONE Stop: 09/12/18 11:19 Last Admin: 09/12/18 10:59 Dose: 100 mls/hr Sodium Chloride (Normal Saline) 1,000 mls @ 999 mls/hr IV .Bolus ONE Stop: 09/12/18 13:05 Last Admin: 09/12/18 12:07 Dose: 999 mls/hr Sodium Chloride (Normal Saline) 1,000 mls @ 999 mls/hr IV .Bolus ONE Stop: 09/12/18 13:47 Last Admin: 09/12/18 14:25 Dose: 999 mls/hr Sodium Chloride (Normal Saline) 1,000 mls @ 999 mls/hr IV .Bolus ONE Stop: 09/12/18 14:09 Last Admin: 09/12/18 13:11 Dose: 999 mls/hr Ketorolac Tromethamine (Toradol) 30 mg IVPUSH ONETIME ONE Stop: 09/12/18 10:08 Last Admin: 09/12/18 10:32 Dose: 30 mg Ondansetron HCl (Zofran) 4 mg IVPUSH ONETIME ONE Stop: 09/12/18 10:08 Last Admin: 09/12/18 10:31 Dose: 4 mg - Exam General: Reports: Alert, Oriented, Cooperative, No Acute Distress Lungs: Reports: Clear to Auscultation, Normal Respiratory Effort Cardiovascular: Reports: Regular Rate, Regular Rhythm GI/Abdominal Exam: Normal Bowel Sounds, Soft, Tender (scant tenderness to LLQ, much improved from admission.) Extremities: Normal Inspection, Normal Range of Motion, Non-Tender Neurological: Reports: No New Focal Deficit Psy/Mental Status: Reports: Alert, Normal Affect, Normal Mood
== END 2018-09-13 17:00 | disposition home or self-care (01) | DRG 720 ==
LOC: MW.ED 09:41 → MW.MS 13:18
PROVIDERS: ADMIT Internal Medicine; ATTEND Internal Medicine
DX: A41.9 Sepsis, unspecified organism (principal); K57.32 Diverticulitis of large intestine without perforation or abscess without bleeding; N20.1 Calculus of ureter; K21.9 Gastro-esophageal reflux disease without esophagitis; Z87.440 Personal history of urinary (tract) infections; Z87.442 Personal history of urinary calculi; G43.909 Migraine, unspecified, not intractable, without status migrainosus; E66.9 Obesity, unspecified; F17.210 Nicotine dependence, cigarettes, uncomplicated
CPT/HCPCS: 36415; 74176; 74176-26; 80048; 80053; 81001; 83605; 85025; 87040; 87086; 96361; 96365; 96375; 99284; 99285-25; C9113; J0696; J1885; J2405; J2543; J7030; J7040

== ENCOUNTER 2018-10-28 06:51 | Day surgery (SDC) | payer BC ==
[~2018-10-28 06:51] MED LIST: Lactated Ringers 1,000 ML IV SCH
--- NOTE | 2018-10-28 07:33 | PCM.PREANE ---
Preanesthetic Assessment - Anesthesia/Transfusion/Family Hx Anesthesia History: Prior Anesthesia Reaction Other Type of Anesthesia Reaction Comment: states she is a "lightweight" Transfusion History: No Prior Transfusion(s) - Review of Systems General: No Symptoms Pulmonary: No Symptoms Cardiovascular: No Symptoms Gastrointestinal: Other (recent episode of diverticulosis) Neurological: No Symptoms Other: Reports: None - Physical Assessment NPO Status Date: 10/27/18 O2 Sat by Pulse Oximetry: 94 Respiratory Rate: 16 Vital Signs: Last Vital Signs Temp 97.7 F 10/28/18 07:26 Pulse 74 10/28/18 07:26 Resp 16 10/28/18 07:26 BP 101/74 10/28/18 07:26 Pulse Ox 94 L 10/28/18 07:26 Height: 5 ft 2 in Weight: 81.193 kg ASA Class: 2 Mental Status: Alert & Oriented x3 Airway Class: Mallampati = 2 Dentition: Reports: Partial ROM/Head Extension: Full Lungs: Clear to Auscultation, Normal Respiratory Effort Cardiovascular: Regular Rate, Regular Rhythm - Allergies Allergies/Adverse Reactions: Allergies Allergy/AdvReac Type Severity Reaction Status Date / Time No Known Allergies Allergy Verified 10/23/18 10:25 - Blood Blood Available: No - Anesthesia Plan Pre-Op Medication Ordered: None - Acknowledgements Anesthesia Type Planned: General Anesthesia Pt an Appropriate Candidate for the Planned Anesthesia: Yes Alternatives and Risks of Anesthesia Discussed w Pt/Guardian: Yes Pt/Guardian Understands and Agrees with Anesthesia Plan: Yes Additional Comments: PMH: gerd, smoker PLAN: mac/tiva PreAnesthesia Questionnaire - Past Health History Medical/Surgical History: Denies Medical/Surgical History HEENT History: Reports: Other (See Below) Other HEENT History: has upper and lower removable partial dentures Cardiovascular History: Reports: None Respiratory History: Reports: None Gastrointestinal History: Reports: Diverticulosis, GERD Other Gastrointestinal History: Diverticulitis Genitourinary History: Reports: Renal Calculus, UTI, Recurrent Other Genitourinary History: currently has a kidney stone on the right side 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: Other OB/BYN History: normal vaginal delivery Musculoskeletal History: Reports: Fracture Other Musculoskeletal History: hx of fx pinky finger Neurological History: Reports: Migraines Psychiatric History: Reports: None Endocrine/Metabolic History: Reports: Obesity/BMI 30+ - Past Surgical History Head Surgeries/Procedures: Reports: None Female Surgical History: Reports: Breast Implant, Lithotripsy/ESWL, Tubal Ligation - SUBSTANCE USE Smoking Status *Q: Current Every Day Smoker Tobacco Use Within Last Twelve Months: Cigarettes Recreational Drug Use History: No - HOME MEDS Home Medications: Home Meds L.acidoph,Paracasei, B.lactis [Probiotic] 1 cap PO DAILY 09/12/18 [History] Dexlansoprazole [Dexilant] 60 mg PO DAILY 10/23/18 [History] - CURRENT (IN HOUSE) MEDS Current Meds: Current Medications Lactated Ringer's (Ringers, Lactated) 1,000 mls @ 125 mls/hr IV ASDIRECTED [facility]
[2018-10-28] MEDS ORDERED: Propofol 200 MG/20 ML SDV ONE ×2 (08:37→08:46)
--- NOTE | 2018-10-28 09:05 | PCM.OPNOTE ---
- General Post-Op/Procedure Note Date of Surgery/Procedure: 10/28/18 Operative Procedure(s): Colonoscopy Pre Op Diagnosis: Left lower quadrant abdominal pain with multiply recurrent diverticulitis Post-Op Diagnosis: Mild sigmoid diverticulosis Anesthesia Technique: MAC (ASA II) Primary Surgeon: Maury Gama Foreign Diplomat: Rob Mcallister Jr Condition: Good Free Text/Narrative:: DICTATION [id number] CPT CODE 11094
[2018-10-28] MEDS ORDERED: Lactated Ringers 1,000 ML IV SCH (09:15)
--- NOTE | 2018-10-28 09:37 | PCM48HPAN ---
Post Anesthesia Note - EVALUATION WITHIN 48HRS OF ANESTHETIC Vital Signs in Normal Range: Yes Patient Participated in Evaluation: Yes Respiratory Function Stable: Yes Airway Patent: Yes Cardiovascular Function Stable: Yes Hydration Status Stable: Yes Pain Control Satisfactory: Yes Nausea and Vomiting Control Satisfactory: Yes Mental Status Recovered: Yes Resp Rate: 16 - COMMENTS/OBSERVATIONS Free Text/Narrative:: direct back to phase 2
--- NOTE | 2018-10-30 06:50 | OR ---
SURGEON: Maury Gama M.D. DATE OF PROCEDURE: 10/28/2018 OPERATION PERFORMED: Colonoscopy. PRIMARY SURGEON: Maury Gama M.D. NATURAL GAS INSPECTOR: Director Of Convention Services: Dr. Mcallister, PGY2. ANESTHESIA: MAC. ASA CLASSIFICATION: II. PREOPERATIVE DIAGNOSIS: Multiple recurrent diverticulitis. POSTOPERATIVE DIAGNOSIS: Mild sigmoid diverticulosis. DESCRIPTION OF PROCEDURE: The patient was taken to the endoscopy room and positioned on the endoscopy table in the left lateral decubitus position. Time-out was called for appropriate identification of the patient and procedure. Monitored anesthesia care was provided. The colonoscope was inserted into the rectum and advanced with minimal difficulty to the cecum where the colonoscope was retroflexed to visualize the ascending colon from below. The colonoscope was then straightened. The cecum had been identified by external pressure and internal landmarks. The cecum, ascending colon, hepatic flexure, transverse colon, splenic flexure, and descending colon were very well visualized. No tumors, polyps, diverticula, or angiodysplastic changes were noted. Sigmoid colon demonstrated a few scattered diverticula. No stricture, spasm, or bleeding was noted. No polyps were encountered in the sigmoid colon. The colonoscope was then withdrawn to the rectum and retroflexed to visualize the anal orifice from above. No tumors, polyps, or acute hemorrhoidal changes were noted. The colonoscope was straightened, the rectum aspirated, and the colonoscope removed. The patient tolerated the procedure well and was taken to recovery room in stable condition. JEANETTE / KAREN /[id number] STEFANO
== END 2018-10-28 09:40 | disposition home or self-care (01) ==
LOC: MW.SDS 06:51
PROVIDERS: ATTEND Surgery
DX: K57.30 Diverticulosis of large intestine without perforation or abscess without bleeding (principal); K21.9 Gastro-esophageal reflux disease without esophagitis; F17.210 Nicotine dependence, cigarettes, uncomplicated; N12 Tubulo-interstitial nephritis, not specified as acute or chronic; Z87.19 Personal history of other diseases of the digestive system; Z79.899 Other long term (current) drug therapy
CPT/HCPCS: 45378; 81025; J2001; J2704; J7120